=== PATIENT | female | born 1950 | race Caucasian/White ===

== ENCOUNTER → 2016-07-09 | Outpatient (CLI) | payer MEDICARE, MEDICAID ==
[~2016-07-09] MED LIST: CALCTAB68 PO; COLA100C PO; DITR1TAB PO; FERR325T PO; FLON1SPR; LEVO50TA5 PO; LIPI10TA PO; NAPR250T2 PO; SERO1TAB PO; SERO50TA PO; TYLE325T5 PO; VITA100066 PO; VITA500T88 PO; VITMTA PO
--- NOTE | 2016-07-09 12:18 | REPMRS ---
Patient History The patient states she had a clinical breast exam in 06/2016. Patient is postmenopausal. No known family history of cancer. Digital Woman Screen Mammo: July 09, 2016 - Exam #: [id number] Bilateral CC and MLO view(s) were taken. Technologist: Alexandra Cash, Technologist Prior study comparison: March 28, 2015, digital woman screen mammo performed at [facility]. March 27, 2014, bilateral bilat screen digital mammo, performed at [facility] FINDINGS: The breast tissue is heterogeneously dense. This may lower the sensitivity of mammography. There has been no change in the appearance of the mammogram from the prior studies. There is a moderate amount of residual fibroglandular tissue which is fairly symmetric. There is no interval development of dominant mass, architectural distortion, or clustered microcalcification typical of malignancy. There are scattered, small, benign calcifications of doubtful clinical significance. Large coarse benign appearing calcifications are present. No significant changes when compared with prior studies. ASSESSMENT: BI-RADS/ACR category 2 mammogram. Benign finding(s). Recommendation Routine screening mammogram in 1 year (for women over age 40). This mammogram was interpreted with the aid of an FDA-approved computer-aided dectection system. A. Negative x-ray reports should not delay biopsy if a dominant or clinically suspicious mass is present. B. Four to eight percent of cancers are not identified by mammography. C. Adenosis and dense breast may obscure an underlying neoplasm. Electronically Signed By: Adam Rivera MD 07/09/16 [id number]
== END ==
LOC: M WHC 09:55
PROVIDERS: ATTEND Obstetrics & Gynecology
DX: Z12.31 Encounter for screening mammogram for malignant neoplasm of breast (principal)

== ENCOUNTER 2016-10-04 19:42 | Emergency (ER) | payer MEDICARE, MEDICAID ==
[~2016-10-04] VITALS: Ht 149.9 cm; Wt 60.8 kg
[~2016-10-04 19:42] MED LIST changes: -COLA100C PO; +COLA100C3 PO
[2016-10-04] MEDS ORDERED: IBUPROFEN 600 MG TAB PO ONE (23:15)
[2016-10-05 00:15] VITALS: BP 114/79
--- NOTE | 2016-10-05 08:00 | REP ---
Clinical: Trauma. Fall. Technique: AP, lateral, bilateral oblique views of the left ankle. Findings: Lateral soft tissue swelling consistent with inversion injury. No acute fracture dislocation. Joint spaces and ankle mortise are intact. No subcutaneous emphysema or radiodense foreign body. Impression: Lateral soft tissue swelling. No acute fracture dislocation. Signed by Joe Escoto MD 10/05/2016 07:51 A
== END 2016-10-05 00:18 | disposition home or self-care (01) ==
LOC: M ED 20:50
DX: S93.402A Sprain of unspecified ligament of left ankle, initial encounter (principal); X50.1XXA Overexertion from prolonged static or awkward postures, initial encounter; Y92.89 Other specified places as the place of occurrence of the external cause; Y93.01 Activity, walking, marching and hiking; Y99.9 Unspecified external cause status

== ENCOUNTER → 2016-12-10 | Outpatient (CLI) | payer MEDICARE, MEDICAID ==
[~2016-12-10] VITALS: Ht 149.9 cm; Wt 61.2 kg
[~2016-12-10] MED LIST changes: +ACET65SU PO; +BUSP5TA PO; -COLA100C3 PO; +COLA100C5 PO; +FERR1TAB8 PO; -FERR325T PO; +LIDOCAINE 2% INJ 100 MG/5 ML SDV (FOR ANES.) As Ordered ONE; -NAPR250T2 PO; +NAPR250T4 PO; +NS 1,000 ML IV ONE; +PROPOFOL 200 MG/20 ML VIAL As Ordered ONE; +QUET1TAB8 PO; +STOO100C PO
--- NOTE | 2016-12-10 09:40 | ROOR ---
Patient Name: Anahi Collado Procedure Date: 12/10/2016 9:13 AM Date of : 1950 Age: 66 Room: [facility] Gender: Female Note Status: Finalized Procedure: Colonoscopy Indications: Screening for colorectal malignant neoplasm Providers: Dani ALAMO MD Referring MD: JEANETTE HAGAN MD Requesting Provider: Medicines: Monitored Anesthesia Care Complications: No immediate complications. Procedure: Pre-Anesthesia Assessment: - The heart rate, respiratory rate, oxygen saturations, blood pressure, adequacy of pulmonary ventilation, and response to care were monitored throughout the procedure. The Colonoscope was introduced through the anus and advanced to the cecum, identified by appendiceal orifice and ileocecal valve. The colonoscopy was performed without difficulty. The patient tolerated the procedure well. The quality of the bowel preparation was good. Findings: The perianal and digital rectal examinations were normal. A few small-mouthed diverticula were found in the sigmoid colon. Small Internal Hemorrhoids. The entire examined colon appeared normal on direct and retroflexion views. Impression: - Minimal diverticulosis in the sigmoid colon. - Small Internal Hemorrhoids. - The entire colon is normal on direct and retroflexion views. - No specimens collected. Recommendation: - Repeat colonoscopy in 10 years for screening purposes. Dani Alamo MD Dani ALAMO MD 12/10/2016 9:40:05 AM This report has been signed electronically. Number of Addenda: 0 Note Initiated On: 12/10/2016 9:13 AM Estimated Blood Loss: Estimated blood loss: none.
[2016-12-10 10:07] VITALS: BP 161/69
== END | disposition home or self-care (01) ==
LOC: M OPP 08:03
PROVIDERS: ATTEND Internal Medicine Gastroenterology
DX: Z12.11 Encounter for screening for malignant neoplasm of colon (principal); K57.30 Diverticulosis of large intestine without perforation or abscess without bleeding; K64.8 Other hemorrhoids; E03.9 Hypothyroidism, unspecified; M19.90 Unspecified osteoarthritis, unspecified site; F79 Unspecified intellectual disabilities; N39.3 Stress incontinence (female) (male); F20.9 Schizophrenia, unspecified; E78.5 Hyperlipidemia, unspecified; M85.9 Disorder of bone density and structure, unspecified; Z79.899 Other long term (current) drug therapy; Z88.8 Allergy status to other drugs, medicaments and biological substances

== ENCOUNTER 2018-02-06 08:56 | Inpatient (IN) | payer MEDICARE, MEDICAID ==
[2018-02-06 09:45] LABS: HEMATOCRIT 38.6 % (36.0-47.0); HEMOGLOBIN 12.6 g/dl (12.0-15.5); MEAN CORPUSCULAR HEMOGLOBIN 32.1 pg (27.0-33.0); MEAN CORPUSCULAR HGB CONC 32.6 g/dl (32.0-36.5); MEAN CORPUSCULAR VOLUME 98.2 fl (80.0-96.0); PLATELET COUNT, AUTOMATED 284 10^3/uL (150-450); RED BLOOD COUNT 3.93 10^6/uL (4.00-5.40); RED CELL DISTRIBUTION WIDTH 12.7 % (11.5-14.5); WHITE BLOOD COUNT 10.1 10^3/uL (4.0-10.0)
[2018-02-06 10:07] LABS: CONTROL LINE HCG INT CTR LINE PRESENT; HCG, SERUM QUALITATIVE NEGATIVE (NEGATIVE)
[2018-02-06 10:13] LABS: AMPHETAMINES LEVEL URINE NEGATIVE (NEGATIVE); BARBITURATES URINE NEGATIVE (NEGATIVE); BENZODIAZEPINES URINE NEGATIVE (NEGATIVE); CANNABINOIDS URINE NEGATIVE (NEGATIVE); COCAINE METABOLITE URINE NEGATIVE (NEGATIVE); METHADONE URINE NEGATIVE (NEGATIVE); OPIATES URINE NEGATIVE (NEGATIVE); PHENCYCLIDINE URINE NEGATIVE (NEGATIVE)
[2018-02-06 10:23] LABS: ACETAMINOPHEN LEVEL < 2.0 UG/ML (10.0-30.0); ALBUMIN/GLOBULIN RATIO 1.29 (1.00-1.93); ALKALINE PHOSPHATASE 104 U/L (45-117); ALT/SGPT 27 U/L (12-78); ANION GAP 8 MEQ/L (8-16); AST/SGOT 30 U/L (7-37); BILIRUBIN,DIRECT 0.1 MG/DL (0.0-0.2); BILIRUBIN,TOTAL 0.3 MG/DL (0.2-1.0); BLOOD UREA NITROGEN 18 MG/DL (7-18); CALCIUM LEVEL 9.2 MG/DL (8.8-10.2); CARBON DIOXIDE LEVEL 26 MEQ/L (21-32); CHLORIDE LEVEL 109 MEQ/L (98-107); CREATININE FOR GFR 0.89 MG/DL (0.55-1.30); ETHYL ALCOHOL (ETHANOL) < 0.003 % (0.000-0.010); GLOMERULAR FILTRATION RATE > 60.0 (>45); GLUCOSE, FASTING 96 MG/DL (70-100); POTASSIUM SERUM 3.8 MEQ/L (3.5-5.1); SALICYLATE LEVEL < 1.7 MG/DL (5.0-30.0); SODIUM LEVEL 143 MEQ/L (136-145); TOTAL PROTEIN 7.1 GM/DL (6.4-8.2)
[2018-02-06 12:06] LABS: KETONE, URINE AUTO RFX 1+ mg/dL (NEGATIVE); LEUKOCYTE ESTERASE UR AUTO RFX NEGATIVE (NEGATIVE); MUCUS, URINE RFX SMALL (NEGATIVE); NITRITE, URINE AUTO RFX NEGATIVE (NEGATIVE); RBC, URINE AUTO RFX 14 /HPF (0-3); SPECIFIC GRAVITY UR AUTO RFX 1.013 (1.002-1.035); SQUAM EPITHELIAL CELL UR AURFX 0 /HPF (0-6); WBC, URINE AUTO RFX 6 /HPF (0-3)
[2018-02-06] MEDS ORDERED: MAALOX 30 ML SUSP *UDC PO (16:15)
[2018-02-06] MEDS ORDERED: traZODone 50 MG TAB PO (16:15)
[2018-02-06] MEDS: ATORVASTATIN 10 MG TAB PO (21:46)
[2018-02-06] MEDS: CALCIUM/VITAMIN D 500 MG TAB PO (21:46)
[2018-02-06] MEDS: FLUTICASONE PROP 0.05% NASAL SPRAY 16 GM (FLONASE) (21:46)
[2018-02-06] MEDS: QUEtiapine FUMARATE 100 MG TAB PO (21:47)
[2018-02-06] MEDS: busPIRone 10 MG TAB PO (21:47)
[2018-02-06] MEDS: DOCUSATE SODIUM 100 MG CAP PO (21:47)
[2018-02-07] MEDS: LEVOTHYROXINE 50MCG TABLET (0.05MG) PO (06:11)
[2018-02-07] MEDS: DOCUSATE SODIUM 100 MG CAP PO ×2 (09:31→21:45)
[2018-02-07] MEDS: MULTIVITAMINS/MINERALS THERAP 1 TAB PO (09:31)
[2018-02-07] MEDS: ASPIRIN 81 MG ENTERIC TAB PO (09:31)
[2018-02-07] MEDS: VITAMIN D 1,000 INTERNATIONAL UNITS TABLET PO (09:31)
[2018-02-07] MEDS: busPIRone 10 MG TAB PO ×2 (09:31→21:45)
[2018-02-07] MEDS: oxyBUTYnin *DITROPAN XL* 5 MG TABCR PO (09:31)
[2018-02-07] MEDS: QUEtiapine FUMARATE 100 MG TAB PO (09:31)
[2018-02-07] MEDS: CEFDINIR 300 MG CAP (OMNICEF) PO ×2 (14:16→21:45)
[2018-02-07] MEDS: BENZTROPINE 0.5 MG TAB PO ×2 (14:20→21:45)
[2018-02-07] MEDS ORDERED: QUEtiapine FUMARATE 200 MG TAB PO (21:00)
[2018-02-07] MEDS: PALIPERIDONE 3 MG ER TAB (INVEGA) PO (21:46)
[2018-02-07] MEDS: ATORVASTATIN 10 MG TAB PO (21:46)
[2018-02-07] MEDS: CALCIUM/VITAMIN D 500 MG TAB PO (21:46)
[2018-02-07] MEDS: FLUTICASONE PROP 0.05% NASAL SPRAY 16 GM (FLONASE) (21:46)
[2018-02-07] MEDS: MIRTAZAPINE 15 MG TAB PO (21:48)
[2018-02-08] MEDS: QUEtiapine FUMARATE 100 MG TAB PO (03:01)
[2018-02-08] MEDS: LEVOTHYROXINE 50MCG TABLET (0.05MG) PO (06:25)
[2018-02-08] MEDS: oxyBUTYnin *DITROPAN XL* 5 MG TABCR PO (08:53)
[2018-02-08] MEDS: ASPIRIN 81 MG ENTERIC TAB PO (08:53)
[2018-02-08] MEDS: CEFDINIR 300 MG CAP (OMNICEF) PO ×2 (08:53→20:33)
[2018-02-08] MEDS: busPIRone 10 MG TAB PO ×2 (08:53→20:33)
[2018-02-08] MEDS: BENZTROPINE 0.5 MG TAB PO ×2 (08:53→20:33)
[2018-02-08] MEDS: VITAMIN D 1,000 INTERNATIONAL UNITS TABLET PO (08:53)
[2018-02-08] MEDS: MULTIVITAMINS/MINERALS THERAP 1 TAB PO (08:53)
[2018-02-08] MEDS: PALIPERIDONE 3 MG ER TAB (INVEGA) PO ×2 (08:53→20:33)
[2018-02-08] MEDS: DOCUSATE SODIUM 100 MG CAP PO ×2 (08:54→20:36)
[2018-02-08] MEDS: ACETAMINOPHEN TAB 650MG DOSE (2X325MG) PO (09:18)
[2018-02-08 11:27] LABS: KETONE, URINE AUTO RFX 1+ mg/dL (NEGATIVE); LEUKOCYTE ESTERASE UR AUTO RFX NEGATIVE (NEGATIVE); MUCUS, URINE RFX SMALL (NEGATIVE); NITRITE, URINE AUTO RFX NEGATIVE (NEGATIVE); RBC, URINE AUTO RFX 9 /HPF (0-3); SQUAM EPITHELIAL CELL UR AURFX 0 /HPF (0-6); WBC, URINE AUTO RFX 1 /HPF (0-3)
[2018-02-08] MEDS: MIRTAZAPINE 15 MG TAB PO (20:33)
[2018-02-08] MEDS: ATORVASTATIN 10 MG TAB PO (20:33)
[2018-02-08] MEDS: FLUTICASONE PROP 0.05% NASAL SPRAY 16 GM (FLONASE) (20:33)
[2018-02-08] MEDS: CALCIUM/VITAMIN D 500 MG TAB PO (20:33)
[2018-02-08] MEDS: MOM 30ML SUSPENSION UDC PO (20:33)
[2018-02-09] MEDS: LEVOTHYROXINE 50MCG TABLET (0.05MG) PO (06:13)
[2018-02-09] MEDS: DOCUSATE SODIUM 100 MG CAP PO ×2 (09:06→23:07)
[2018-02-09] MEDS: VITAMIN D 1,000 INTERNATIONAL UNITS TABLET PO (09:06)
[2018-02-09] MEDS: oxyBUTYnin *DITROPAN XL* 5 MG TABCR PO (09:06)
[2018-02-09] MEDS: busPIRone 10 MG TAB PO ×2 (09:06→23:07)
[2018-02-09] MEDS: CEFDINIR 300 MG CAP (OMNICEF) PO ×2 (09:06→23:06)
[2018-02-09] MEDS: BENZTROPINE 0.5 MG TAB PO ×2 (09:06→23:07)
[2018-02-09] MEDS: PALIPERIDONE 3 MG ER TAB (INVEGA) PO ×2 (09:06→23:07)
[2018-02-09] MEDS: MULTIVITAMINS/MINERALS THERAP 1 TAB PO (09:06)
[2018-02-09] MEDS: ASPIRIN 81 MG ENTERIC TAB PO (09:06)
[2018-02-09] MEDS: FLUTICASONE PROP 0.05% NASAL SPRAY 16 GM (FLONASE) (21:00)
[2018-02-09] MEDS: CALCIUM/VITAMIN D 500 MG TAB PO (23:06)
[2018-02-09] MEDS: ATORVASTATIN 10 MG TAB PO (23:07)
[2018-02-09] MEDS: MIRTAZAPINE 15 MG TAB PO (23:07)
[2018-02-10] MEDS: LEVOTHYROXINE 50MCG TABLET (0.05MG) PO (06:05)
[2018-02-10] MEDS: busPIRone 10 MG TAB PO ×2 (09:30→21:56)
[2018-02-10] MEDS: BENZTROPINE 0.5 MG TAB PO ×2 (09:30→21:56)
[2018-02-10] MEDS: PALIPERIDONE 3 MG ER TAB (INVEGA) PO ×2 (09:30→21:56)
[2018-02-10] MEDS: CEFDINIR 300 MG CAP (OMNICEF) PO ×2 (09:30→21:56)
[2018-02-10] MEDS: oxyBUTYnin *DITROPAN XL* 5 MG TABCR PO (09:30)
[2018-02-10] MEDS: MULTIVITAMINS/MINERALS THERAP 1 TAB PO (09:30)
[2018-02-10] MEDS: DOCUSATE SODIUM 100 MG CAP PO ×2 (09:30→21:56)
[2018-02-10] MEDS: ASPIRIN 81 MG ENTERIC TAB PO (09:30)
[2018-02-10] MEDS: VITAMIN D 1,000 INTERNATIONAL UNITS TABLET PO (09:30)
[2018-02-10] MEDS: ACETAMINOPHEN TAB 650MG DOSE (2X325MG) PO (09:44)
[2018-02-10] MEDS: FLUTICASONE PROP 0.05% NASAL SPRAY 16 GM (FLONASE) (21:00)
[2018-02-10] MEDS: MIRTAZAPINE 15 MG TAB PO (21:55)
[2018-02-10] MEDS: ATORVASTATIN 10 MG TAB PO (21:56)
[2018-02-10] MEDS: CALCIUM/VITAMIN D 500 MG TAB PO (21:56)
[2018-02-11] MEDS: LEVOTHYROXINE 50MCG TABLET (0.05MG) PO (06:29)
[2018-02-11] MEDS: ASPIRIN 81 MG ENTERIC TAB PO (08:18)
[2018-02-11] MEDS: oxyBUTYnin *DITROPAN XL* 5 MG TABCR PO (08:19)
[2018-02-11] MEDS: DOCUSATE SODIUM 100 MG CAP PO ×2 (08:19→21:15)
[2018-02-11] MEDS: VITAMIN D 1,000 INTERNATIONAL UNITS TABLET PO (08:19)
[2018-02-11] MEDS: PALIPERIDONE 3 MG ER TAB (INVEGA) PO ×2 (08:19→21:17)
[2018-02-11] MEDS: MULTIVITAMINS/MINERALS THERAP 1 TAB PO (08:19)
[2018-02-11] MEDS: BENZTROPINE 0.5 MG TAB PO ×2 (08:19→21:16)
[2018-02-11] MEDS: busPIRone 10 MG TAB PO ×2 (08:19→21:16)
[2018-02-11] MEDS: CEFDINIR 300 MG CAP (OMNICEF) PO ×2 (08:19→21:16)
[2018-02-11] MEDS: ACETAMINOPHEN TAB 650MG DOSE (2X325MG) PO (18:33)
[2018-02-11] MEDS: FLUTICASONE PROP 0.05% NASAL SPRAY 16 GM (FLONASE) (21:15)
[2018-02-11] MEDS: ATORVASTATIN 10 MG TAB PO (21:15)
[2018-02-11] MEDS: CALCIUM/VITAMIN D 500 MG TAB PO (21:16)
[2018-02-11] MEDS: MIRTAZAPINE 15 MG TAB PO (21:16)
[2018-02-12] MEDS: LEVOTHYROXINE 50MCG TABLET (0.05MG) PO (06:12)
[2018-02-12] MEDS: oxyBUTYnin *DITROPAN XL* 5 MG TABCR PO (08:21)
[2018-02-12] MEDS: VITAMIN D 1,000 INTERNATIONAL UNITS TABLET PO (08:21)
[2018-02-12] MEDS: PALIPERIDONE 3 MG ER TAB (INVEGA) PO ×2 (08:22→21:35)
[2018-02-12] MEDS: BENZTROPINE 0.5 MG TAB PO ×2 (08:22→21:35)
[2018-02-12] MEDS: busPIRone 10 MG TAB PO ×2 (08:22→21:35)
[2018-02-12] MEDS: ASPIRIN 81 MG ENTERIC TAB PO (08:22)
[2018-02-12] MEDS: CEFDINIR 300 MG CAP (OMNICEF) PO ×2 (08:22→21:35)
[2018-02-12] MEDS: MULTIVITAMINS/MINERALS THERAP 1 TAB PO (08:22)
[2018-02-12] MEDS: DOCUSATE SODIUM 100 MG CAP PO ×2 (08:22→21:35)
[2018-02-12] MEDS: ATORVASTATIN 10 MG TAB PO (21:35)
[2018-02-12] MEDS: CALCIUM/VITAMIN D 500 MG TAB PO (21:35)
[2018-02-12] MEDS: MIRTAZAPINE 15 MG TAB PO (21:35)
[2018-02-12] MEDS: FLUTICASONE PROP 0.05% NASAL SPRAY 16 GM (FLONASE) (21:35)
[2018-02-13] MEDS: LEVOTHYROXINE 50MCG TABLET (0.05MG) PO (06:40)
[2018-02-13] MEDS: oxyBUTYnin *DITROPAN XL* 5 MG TABCR PO (09:24)
[2018-02-13] MEDS: BENZTROPINE 0.5 MG TAB PO ×2 (09:24→21:43)
[2018-02-13] MEDS: busPIRone 10 MG TAB PO ×2 (09:24→21:43)
[2018-02-13] MEDS: MULTIVITAMINS/MINERALS THERAP 1 TAB PO (09:24)
[2018-02-13] MEDS: DOCUSATE SODIUM 100 MG CAP PO ×2 (09:24→21:43)
[2018-02-13] MEDS: ASPIRIN 81 MG ENTERIC TAB PO (09:24)
[2018-02-13] MEDS: VITAMIN D 1,000 INTERNATIONAL UNITS TABLET PO (09:24)
[2018-02-13] MEDS: PALIPERIDONE 3 MG ER TAB (INVEGA) PO ×2 (09:24→21:46)
[2018-02-13] MEDS: CEFDINIR 300 MG CAP (OMNICEF) PO ×2 (09:24→21:43)
[2018-02-13 18:56] LABS: ALKALINE PHOSPHATASE 102 U/L (45-117); ALT/SGPT 42 U/L (12-78); ANION GAP 7 MEQ/L (8-16); AST/SGOT 43 U/L (7-37); BILIRUBIN,TOTAL 0.2 MG/DL (0.2-1.0); BLOOD UREA NITROGEN 20 MG/DL (7-18); CALCIUM LEVEL 9.2 MG/DL (8.8-10.2); CARBON DIOXIDE LEVEL 28 MEQ/L (21-32); CHLORIDE LEVEL 105 MEQ/L (98-107); CREATININE FOR GFR 0.89 MG/DL (0.55-1.30); GLOMERULAR FILTRATION RATE > 60.0 (>45); GLUCOSE, FASTING 97 MG/DL (70-100); POTASSIUM SERUM 4.4 MEQ/L (3.5-5.1); SODIUM LEVEL 140 MEQ/L (136-145)
[2018-02-13 18:57] LABS: ALBUMIN 3.7 GM/DL (3.2-5.2); ALBUMIN/GLOBULIN RATIO 1.37 (1.00-1.93); TOTAL PROTEIN 6.4 GM/DL (6.4-8.2)
[2018-02-13] MEDS: CALCIUM/VITAMIN D 500 MG TAB PO (21:43)
[2018-02-13] MEDS: ATORVASTATIN 10 MG TAB PO (21:43)
[2018-02-13] MEDS: MIRTAZAPINE 15 MG TAB PO (21:43)
[2018-02-13] MEDS: FLUTICASONE PROP 0.05% NASAL SPRAY 16 GM (FLONASE) (21:46)
[2018-02-14] MEDS: LEVOTHYROXINE 50MCG TABLET (0.05MG) PO (06:03)
[2018-02-14] MEDS: MULTIVITAMINS/MINERALS THERAP 1 TAB PO (08:15)
[2018-02-14] MEDS: CEFDINIR 300 MG CAP (OMNICEF) PO ×2 (08:16→20:01)
[2018-02-14] MEDS: PALIPERIDONE 3 MG ER TAB (INVEGA) PO ×2 (08:16→20:01)
[2018-02-14] MEDS: ASPIRIN 81 MG ENTERIC TAB PO (08:16)
[2018-02-14] MEDS: DOCUSATE SODIUM 100 MG CAP PO ×2 (08:16→20:01)
[2018-02-14] MEDS: BENZTROPINE 0.5 MG TAB PO ×2 (08:16→20:02)
[2018-02-14] MEDS: VITAMIN D 1,000 INTERNATIONAL UNITS TABLET PO (08:16)
[2018-02-14] MEDS: busPIRone 10 MG TAB PO ×2 (08:16→20:01)
[2018-02-14] MEDS: oxyBUTYnin *DITROPAN XL* 5 MG TABCR PO (08:16)
[2018-02-14] MEDS: MIRTAZAPINE 15 MG TAB PO (20:01)
[2018-02-14] MEDS: CALCIUM/VITAMIN D 500 MG TAB PO (20:01)
[2018-02-14] MEDS: ATORVASTATIN 10 MG TAB PO (20:01)
[2018-02-14] MEDS: FLUTICASONE PROP 0.05% NASAL SPRAY 16 GM (FLONASE) (20:01)
[2018-02-15] MEDS: LEVOTHYROXINE 50MCG TABLET (0.05MG) PO (06:09)
[2018-02-15] MEDS: BENZTROPINE 0.5 MG TAB PO (08:12)
[2018-02-15] MEDS: CEFDINIR 300 MG CAP (OMNICEF) PO (08:12)
[2018-02-15] MEDS: MULTIVITAMINS/MINERALS THERAP 1 TAB PO (08:12)
[2018-02-15] MEDS: PALIPERIDONE 3 MG ER TAB (INVEGA) PO (08:12)
[2018-02-15] MEDS: busPIRone 10 MG TAB PO (08:12)
[2018-02-15] MEDS: ASPIRIN 81 MG ENTERIC TAB PO (08:12)
[2018-02-15] MEDS: VITAMIN D 1,000 INTERNATIONAL UNITS TABLET PO (08:12)
[2018-02-15] MEDS: DOCUSATE SODIUM 100 MG CAP PO (08:13)
[2018-02-15] MEDS: oxyBUTYnin *DITROPAN XL* 5 MG TABCR PO (09:01)
== END 2018-02-15 11:40 | disposition home or self-care (01) | DRG 885 ==
LOC: M ED 08:56 → M ED INP 16:11 → M PSY 17:43
DX: F20.9 Schizophrenia, unspecified (principal); F79 Unspecified intellectual disabilities; Z79.899 Other long term (current) drug therapy; Z79.82 Long term (current) use of aspirin; Z88.8 Allergy status to other drugs, medicaments and biological substances; E55.9 Vitamin D deficiency, unspecified; D50.9 Iron deficiency anemia, unspecified; E03.9 Hypothyroidism, unspecified; E78.5 Hyperlipidemia, unspecified; J30.9 Allergic rhinitis, unspecified; Z86.73 Personal history of transient ischemic attack (TIA), and cerebral infarction without residual deficits

== ENCOUNTER 2019-02-06 08:45 | Emergency (ER) | payer MEDICARE, MEDICAID ==
[~2019-02-06] VITALS: Ht 149.9 cm; Wt 62.3 kg
[~2019-02-06 08:45] MED LIST changes: +ASPI81TA26 PO; +BENZ0.5T23 PO; +BUSP10TA PO; +CEFD300CAP PO; -LIDOCAINE 2% INJ 100 MG/5 ML SDV (FOR ANES.) As Ordered ONE; +MIRT15TA3 PO; +MM S100C PO; -NS 1,000 ML IV ONE; +PALI1TAB2 PO; -PROPOFOL 200 MG/20 ML VIAL As Ordered ONE; +REFR0.5D8 OU; -STOO100C PO; +TESS100C PO
[2019-02-06] MEDS ORDERED: MULTCAP PO (09:06)
[2019-02-06] MEDS ORDERED: VITA500079 PO (09:06)
[2019-02-06] MEDS ORDERED: FLUTISP NARES (09:06)
[2019-02-06] MEDS ORDERED: LIPI10TA PO (09:06)
[2019-02-06] MEDS ORDERED: CALC600T18 PO (09:06)
[2019-02-06] MEDS ORDERED: BUSP10TA PO (09:06)
[2019-02-06] MEDS ORDERED: COLA100C5 PO (09:06)
[2019-02-06] MEDS ORDERED: LEVO50TA45 PO (09:06)
[2019-02-06] MEDS ORDERED: SERO1TAB2 PO (09:06)
[2019-02-06] MEDS ORDERED: ASPI81TA85 PO (09:06)
[2019-02-06] MEDS ORDERED: OXYB10TA2 PO (09:06)
[2019-02-06] MEDS ORDERED: ASCO500T PO (09:06)
[2019-02-06] MEDS ORDERED: BUSP15TA47 PO (09:06)
[2019-02-06] MEDS ORDERED: QUET1TAB8 PO (09:06)
[2019-02-06 09:21] LABS: BASO # 0.1 10^3/uL (0.0-0.2); BASO % 1.6 % (0.0-1.0); EOS # 0.7 10^3/uL (0.0-0.5); EOS % 9.5 % (0.0-3.0); HEMATOCRIT 36.9 % (36.0-47.0); HEMOGLOBIN 12.1 g/dl (12.0-15.5); LYMPH % 29.6 % (24.0-44.0); MEAN CORPUSCULAR HEMOGLOBIN 32.4 pg (27.0-33.0); MEAN CORPUSCULAR HGB CONC 32.8 g/dl (32.0-36.5); MEAN CORPUSCULAR VOLUME 98.9 fl (80.0-96.0); MONO # 0.6 10^3/uL (0.0-0.8); MONO % 8.2 % (0.0-5.0); NEUTROPHILS # 3.5 10^3/uL (1.5-8.5); NEUTROPHILS % 50.8 % (36.0-66.0); PLATELET COUNT, AUTOMATED 230 10^3/uL (150-450); RED BLOOD COUNT 3.73 10^6/uL (4.00-5.40); WHITE BLOOD COUNT 6.9 10^3/uL (4.0-10.0)
[2019-02-06 09:44] LABS: BLOOD UREA NITROGEN 20 MG/DL (7-18); CALCIUM LEVEL 8.8 MG/DL (8.8-10.2); CARBON DIOXIDE LEVEL 28 MEQ/L (21-32); CHLORIDE LEVEL 107 MEQ/L (98-107); CK-MB VALUE MASS < 1.0 NG/ML (<3.6); CPK CREATINE PHOSPHOKINASE 91 U/L (26-192); CREATININE FOR GFR 0.99 MG/DL (0.55-1.30); GLOMERULAR FILTRATION RATE 59.7 (>45); GLUCOSE, FASTING 120 MG/DL (70-100); SODIUM LEVEL 142 MEQ/L (136-145); TROPONIN I < 0.02 NG/ML (< 0.10)
--- NOTE | 2019-02-06 09:52 | REP ---
CT BRAIN WITHOUT CONTRAST: HISTORY: Syncope. Comparison CT study October 31, 2017. December 11, 2015 prior study is also reviewed. CT FINDINGS: Preliminary digital needle maker radiograph is unremarkable. Bone window settings demonstrate an intact bony calvarium. The visualized paranasal sinuses are clear. No intraorbital abnormality is seen. There is a lacunar infarct in the right basal ganglia measuring 1.4 cm in greatest dimension unchanged from October 31, 2017. There are small vessel atherosclerotic changes in the periventricular white matter of the frontal lobes bilaterally also unchanged. There is no evidence of acute infarction today. No hemorrhage is seen. No mass, extra-axial fluid collection, or midline shift is seen. 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 No acute intracranial abnormality. Findings unchanged from October 31, 2017. Electronically Signed by Ruperto Simons MD 02/06/2019 04:06 P
[2019-02-06 11:19] VITALS: BP 151/89
--- NOTE | 2019-02-06 17:46 | ECGEPIP ---
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
== END 2019-02-06 11:28 | disposition home or self-care (01) ==
LOC: EDBD 08:45 → M ED 08:45
DX: R55 Syncope and collapse (principal); E07.9 Disorder of thyroid, unspecified; E78.00 Pure hypercholesterolemia, unspecified; D50.9 Iron deficiency anemia, unspecified; F20.9 Schizophrenia, unspecified; J30.2 Other seasonal allergic rhinitis; Z79.899 Other long term (current) drug therapy; Z79.890 Hormone replacement therapy; Z79.82 Long term (current) use of aspirin; Z88.8 Allergy status to other drugs, medicaments and biological substances

== ENCOUNTER 2019-03-18 14:15 | Observation (INO) | payer MEDICARE, MEDICAID ==
[~2019-03-18] VITALS: Ht 149.9 cm; Wt 72.8 kg
[~2019-03-18 14:15] MED LIST changes: +ASCO500T PO; +ASPI81TA85 PO; +BUSP15TA47 PO; +CALC600T18 PO; +FLUTISP NARES; +LEVO50TA45 PO; +MULTCAP PO; +OXYB10TA2 PO; +SERO1TAB2 PO; +VITA500079 PO
[2019-03-18] MEDS ORDERED: CIPR-250 PO (14:36)
[2019-03-18] MEDS ORDERED: NS 500 ML IV ONE (15:30)
[2019-03-18 15:55] LABS: BASO # 0.1 10^3/uL (0.0-0.2); BASO % 1.2 % (0.0-1.0); EOS # 0.3 10^3/uL (0.0-0.5); EOS % 3.1 % (0.0-3.0); HEMATOCRIT 35.9 % (36.0-47.0); HEMOGLOBIN 11.3 g/dl (12.0-15.5); LYMPH # 2.3 10^3/uL (1.5-5.0); LYMPH % 24.3 % (24.0-44.0); MEAN CORPUSCULAR HEMOGLOBIN 31.7 pg (27.0-33.0); MEAN CORPUSCULAR HGB CONC 31.5 g/dl (32.0-36.5); MEAN CORPUSCULAR VOLUME 100.8 fl (80.0-96.0); MONO # 0.9 10^3/uL (0.0-0.8); MONO % 9.2 % (0.0-5.0); NEUTROPHILS # 5.9 10^3/uL (1.5-8.5); NEUTROPHILS % 61.9 % (36.0-66.0); PLATELET COUNT, AUTOMATED 222 10^3/uL (150-450); RED BLOOD COUNT 3.56 10^6/uL (4.00-5.40); WHITE BLOOD COUNT 9.6 10^3/uL (4.0-10.0)
--- NOTE | 2019-03-18 15:55 | REP ---
Clinical: Altered mental status . Comparison: 10/31/2017 . Findings: The mediastinum and cardiac silhouette are stable and within normal limits for portable technique. The lung munoz are clear without acute consolidation, effusion, or pneumothorax. Skeletal structures are intact. Impression: No acute cardiopulmonary process appreciated. Electronically Signed by Joe Escoto MD 03/18/2019 03:45 P
[2019-03-18 16:27] LABS: ALBUMIN 3.3 GM/DL (3.2-5.2); ALT/SGPT 21 U/L (12-78); BILIRUBIN,DIRECT 0.1 MG/DL (0.0-0.2); BILIRUBIN,TOTAL 0.3 MG/DL (0.2-1.0); BLOOD UREA NITROGEN 19 MG/DL (7-18); CALCIUM LEVEL 8.1 MG/DL (8.8-10.2); CARBON DIOXIDE LEVEL 26 MEQ/L (21-32); CHLORIDE LEVEL 104 MEQ/L (98-107); CK-MB VALUE MASS 3.4 NG/ML (<3.6); CPK CREATINE PHOSPHOKINASE 217 U/L (26-192); CREATININE FOR GFR 1.28 MG/DL (0.55-1.30); GLOMERULAR FILTRATION RATE 44.3 (>45); GLUCOSE, FASTING 100 MG/DL (70-100); MB/CK RELATIVE INDEX 1.57 (< OR =4); POTASSIUM SERUM 3.7 MEQ/L (3.5-5.1); SODIUM LEVEL 138 MEQ/L (136-145); TROPONIN I < 0.02 NG/ML (< 0.10)
[2019-03-18 16:28] LABS: OSMOLALITY SERUM 278 MOSM/KG (280-301)
[2019-03-18] MEDS ORDERED: ISOVUE-370 76% 100ML VIAL (Q9967) As Ordered ONE (16:42)
--- NOTE | 2019-03-18 17:09 | REP ---
Clinical: Cough. Technique: Axial contrast enhanced images from the thoracic inlet to the upper abdomen with coronal and sagittal re-formations. 100 ml Isovue 370 intravenous contrast material administered without complication. Findings: Bilateral lung munoz are well-aerated. Minimal posterior basilar dependent changes are noted. No acute consolidation, effusion, or pneumothorax. Tracheobronchial tree is patent. No adenopathy. Mediastinum demonstrates relatively normal thoracic aorta, pulmonary vasculature and heart/pericardium. Surrounding musculoskeletal structures are intact. Impression: No acute mediastinal or pleuroparenchymal process. Electronically Signed by Joe Escoto MD 03/18/2019 05:00 P
--- NOTE | 2019-03-18 17:11 | REP ---
Clinical: Abdominal pain. Technique: Axial contrast enhanced images from the lung bases to the pubic symphysis with coronal and sagittal re-formations using 100 ml Isovue 370 intravenous contrast material. Findings: Liver, spleen, pancreas, gallbladder, bilateral adrenal glands and kidneys are normal. No evidence for bowel obstruction or obvious acute inflammatory process. Normal terminal ileum and appendix identified in the right lower quadrant. Scattered sigmoid diverticula noted without acute diverticulitis. Pelvis demonstrates normal bladder and age-appropriate uterus/adnexa. No ascites. No free air. No adenopathy. Abdominal aorta without aneurysm or dissection. Musculoskeletal structures without focal abnormality. Impression: No acute abdominopelvic pathology appreciated. Electronically Signed by Joe Escoto MD 03/18/2019 05:02 P
--- NOTE | 2019-03-18 19:09 | HPEPDOC ---
[facility] Medical History & Physical Date of Admission Mar 18, 2019 Date of Service: Mar 18, 2019 Attending Physician: GABRIEL GALVAN MD History and Physical CHIEF COMPLAINT: Altered mental status HISTORY OF PRESENT ILLNESS: 69-year-old female with past medical history of schizophrenia, hypothyroidism and hyperlipidemia presents from prison for altered mental status for the past few days. She was recently diagnosed with UTI, being treated with ciprofloxacin, patient is only oriented to self, poor historian, unable to answer any questions appropriate. Aide from prison is present at bedside, providing all information. Patient has a history of recurrent UTIs, usually gets altered mental status with UTIs, but this episode is worse than usual, has been worsening since she was diagnosed UTI to point where staff was concerned and sent to the hospital. Patient does not have any complaints at this time, eating dinner without any issues and asking when she can go back to her prison. In the ED, patient is afebrile, hemodynamic stable, CT of the chest, abdomen and pelvis without any acute pathology. PAST MEDICAL HISTORY: 1. Schizophrenia. 2., Hypothyroidism. 3. , Hyperlipidemia. PAST SURGICAL HISTORY: 1. As per aide patient has had one surgery in the past, doesn't know which. SOCIAL HISTORY: Never smoker. Denies alcohol FAMILY HISTORY: Unable to obtain ALLERGIES: Please see below. REVIEW OF SYSTEMS: Unable to obtain due to mental status HOME MEDICATIONS: Please see below. PHYSICAL EXAMINATION: VITAL SIGNS: Please see below. GENERAL: No distress HEENT: Normocephalic, atraumatic, moist mucous membranes NECK: Supple CARDIOVASCULAR EXAMINATION: S1, S2, no murmurs RESPIRATORY EXAMINATION: Clear to auscultation, no wheezing ABDOMINAL EXAMINATION: Soft, mild suprapubic tenderness, nondistended, positive bowel sounds EXTREMITIES: Range of motion intact SKIN: No rash NEUROLOGICAL EXAMINATION: Alert and oriented 3, no focal deficits PSYCHIATRIC EXAMINATION: Calm and cooperative LABORATORY DATA: See below. IMAGING: CT chest, abdomen and pelvis without any acute pathology MICROBIOLOGY: Please see below. ASSESSMENT: 69-year-old female with history of schizophrenia, hypothyroidism and recurrent UTIs, recently diagnosed with UTI being treated with ciprofloxacin presents from prison with worsening altered mental status. PLAN: 1. Altered mental status ?Due to UTI vs medication side effects vs intracranial pathology Patient will be admitted for observation Switch ciprofloxacin to ceftriaxone, CT had ordered. CT chest, abdomen and pelvis without any acute pathology. 2. Schizophrenia. Continue home meds. 3. Hypothyroidism. Continue levothyroxine. 4. Hyperlipidemia. Continue home atorvastatin DVT prophylaxis: Heparin subcutaneous GI prophylaxis: Not needed Vital Signs Vital Signs Date Time Temp Pulse Resp B/P (MAP) Pulse Ox O2 Delivery O2 Flow Rate FiO2 03/18/19 18:46 85 20 160/85 (110) 98 Room Air 03/18/19 14:16 98.6 Laboratory Data Labs 24H Laboratory Tests 2 03/18/19 15:41: Immature Granulocyte % (Auto) 0.3, Neutrophils (%) (Auto) 61.9, Lymphocytes (%) (Auto) 24.3, Monocytes (%) (Auto) 9.2H, Eosinophils (%) (Auto) 3.1H, Basophils (%) (Auto) 1.2H, Neutrophils # (Auto) 5.9, Lymphocytes # (Auto) 2.3, Monocytes # (Auto) 0.9H, Eosinophils # (Auto) 0.3, Basophils # (Auto) 0.1, Nucleated Red Blood Cells % (auto) 0.0, Anion Gap 8, Glomerular Filtration Rate 44.3L, Osmolality 278L, Lactic Acid Level 0.5, Calcium Level 8.1L, Total Bilirubin 0.3, Direct Bilirubin 0.1, Aspartate Amino Transf (AST/SGOT) 30, Alanine Aminotransferase (ALT/SGPT) 21, Alkaline Phosphatase 83, Ammonia < 10, Total Creatine Kinase 217H, Creatine Kinase MB 3.4, Creatine Kinase MB Relative Index 1.57, Troponin I < 0.02, Total Protein 6.0L, Albumin 3.3, Albumin/Globulin Ratio 1.22, Thyroid Stimulating Hormone (TSH) 2.660 03/18/19 15:48: Urine Color YELLOW, Urine Appearance HAZY, Urine pH 6.0, Urine Specific [place] 1.004, Urine Protein NEGATIVE, Urine Glucose (UA) NEGATIVE, Urine Ketones NEGATIVE, Urine Blood NEGATIVE, Urine Nitrite NEGATIVE, Urine Bilirubin NEGATIVE, Urine Urobilinogen 0.2, Urine Leukocyte Esterase NEGATIVE, Urine WBC (Auto) 1, Urine RBC (Auto) 1, Urine Hyaline Casts (Auto) 0, Urine Bacteria (Auto) 1+H, Urine Squamous Epithelial Cells 0, Urine Sperm (Auto) CBC/BMP Laboratory Tests 03/18/19 15:41 Microbiology Microbiology 03/18/19 Blood Culture, Received Pending 03/18/19 Blood Culture, Received Pending Home Medications Scheduled Ascorbic Acid (Ascorbic Acid) 500 Mg Tablet, 500 MG PO DAILY Aspirin (Aspir 81) 81 Mg Tablet.dr, 81 MG PO DAILY Atorvastatin Calcium (Lipitor) 10 Mg Tablet, 10 MG PO DAILY Buspirone HCl (Buspirone HCl) 15 Mg Tablet, 15 MG PO BID 25MG BID Calcium Carbonate/Vitamin D3 (Calcium 600-Vit D3 400 Tablet) 1 Each Tablet, 1 TAB PO DAILY Cholecalciferol (Vitamin D3) (Vitamin D3) 5,000 Unit Tab.rapdis, 5,000 UNIT PO DAILY Ciprofloxacin HCl (Cipro) 250 Mg Tablet, 250 TAB PO BID Docusate Sodium (Colace) 100 Mg Capsule, 100 MG PO BID Fluticasone Propionate (Fluticasone Propionate) 16 Gm [place].susp, 2 SPRAY NARES DAILY Levothyroxine Sodium (Levoxyl) 50 Mcg Tablet, 50 MCG PO QAM Multivitamin (Multivitamins) 1 Each Capsule, 1 CAP PO DAILY Oxybutynin Chloride (Oxybutynin Chloride ER) 10 Mg Tab.er.24, 10 MG PO DAILY Quetiapine Fumarate (Quetiapine Fumarate) 100 Mg Tablet, 100 MG PO DAILY Allergies Coded Allergies: SEASONAL ALLERGIES (Verified Allergy, Unknown, 10/31/17) ziprasidone (Verified Allergy, Unknown, 02/06/19) A-FIB/CHADSVASC A-FIB History Current/History of A-Fib/PAF?: No GABRIEL GALVAN MD Mar 18, 2019 19:09
[2019-03-18] MEDS ORDERED: BUSP10TA PO (19:13)
[2019-03-18] MEDS ORDERED: QUET1TAB10 PO (19:13)
[2019-03-18] MEDS: cefTRIAXone SOD 1 GM in D5W MINI-BAG PLUS 50 ML IV SCH (20:16)
[2019-03-18 21:20] VITALS: BP 132/85
[2019-03-18] MEDS: HEPARIN SOD (PORCINE) 5000 UNITS/ML VIAL SC SCH (22:09)
[2019-03-18] MEDS: QUEtiapine FUMARATE 100 MG TAB PO SCH (22:10)
[2019-03-18] MEDS: busPIRone 5 MG TAB PO SCH (22:10)
[2019-03-18] MEDS: DOCUSATE SODIUM 100 MG CAP PO SCH (22:10)
[2019-03-18] MEDS: busPIRone 10 MG TAB PO SCH (22:10)
--- NOTE | 2019-03-18 23:52 | REPVR ---
PROCEDURE INFORMATION: Exam: CT Head Without Contrast Exam date and time: 03/18/2019 11:36 PM Clinical history: 69 years old, female; Altered mental status/memory loss; Confusion or disorientation; Additional info: AMS TECHNIQUE: Imaging protocol: Computed tomography of the head without contrast. Radiation optimization: All CT scans at this facility use at least one of these dose optimization techniques: automated exposure control; mA and/or kV adjustment per patient size (includes targeted exams where dose is matched to clinical indication); or iterative reconstruction. COMPARISON: CT Head without contrast 02/06/2019 9:27 AM FINDINGS: Brain: Chronic infarct in the right basal ganglia. The recinos-white differentiation is maintained. No hemorrhage. No edema. Ventricles: Normal. No ventriculomegaly. Bones/joints: Unremarkable. No acute fracture. Sinuses: Visualized sinuses are unremarkable. No fluid levels. Mastoid air cells: Visualized mastoid air cells are well aerated. Soft tissues: Unremarkable. IMPRESSION: No acute intracranial abnormality. Electronically signed by: Luis Cerda On 03/18/2019 23:51:15 PM
[2019-03-19 06:00] VITALS: BP 134/86
[2019-03-19 06:07] LABS: HEMATOCRIT 37.1 % (36.0-47.0); HEMOGLOBIN 11.7 g/dl (12.0-15.5); MEAN CORPUSCULAR HEMOGLOBIN 31.4 pg (27.0-33.0); MEAN CORPUSCULAR HGB CONC 31.5 g/dl (32.0-36.5); MEAN CORPUSCULAR VOLUME 99.5 fl (80.0-96.0); PLATELET COUNT, AUTOMATED 236 10^3/uL (150-450); RED BLOOD COUNT 3.73 10^6/uL (4.00-5.40); WHITE BLOOD COUNT 7.8 10^3/uL (4.0-10.0)
[2019-03-19] MEDS: HEPARIN SOD (PORCINE) 5000 UNITS/ML VIAL SC SCH ×3 (06:17→21:07)
[2019-03-19] MEDS: LEVOTHYROXINE 50MCG TABLET (0.05MG) PO SCH (06:17)
[2019-03-19 06:30] LABS: ALBUMIN 3.3 GM/DL (3.2-5.2); BILIRUBIN,TOTAL 0.3 MG/DL (0.2-1.0); CALCIUM LEVEL 8.8 MG/DL (8.8-10.2); CREATININE FOR GFR 1.11 MG/DL (0.55-1.30); GLOMERULAR FILTRATION RATE 52.2 (>45); POTASSIUM SERUM 3.8 MEQ/L (3.5-5.1); TOTAL PROTEIN 6.3 GM/DL (6.4-8.2)
[2019-03-19] MEDS: ASPIRIN 81 MG ENTERIC TAB PO SCH (08:37)
[2019-03-19] MEDS: FLUTICASONE PROP 0.05% NASAL SPRAY 16 GM (FLONASE) NARES SCH (08:37)
[2019-03-19] MEDS: ATORVASTATIN 10 MG TAB PO SCH (08:38)
[2019-03-19] MEDS: DOCUSATE SODIUM 100 MG CAP PO SCH ×2 (08:38→20:38)
[2019-03-19] MEDS: ASCORBIC ACID 500 MG TAB PO SCH (08:38)
[2019-03-19] MEDS: busPIRone 5 MG TAB PO SCH ×2 (08:38→20:38)
[2019-03-19] MEDS: oxyBUTYnin *DITROPAN XL* 5 MG TABCR PO SCH (08:38)
[2019-03-19] MEDS: busPIRone 10 MG TAB PO SCH ×2 (08:38→20:38)
[2019-03-19] MEDS: QUEtiapine FUMARATE 100 MG TAB PO SCH ×2 (08:47→20:38)
--- NOTE | 2019-03-19 13:35 | IPNPDOC ---
Text Note Date of Service The patient was seen on 03/19/19. NOTE SUBJECTIVE: This is a 69-year-old female with a past medical history significant for schizophrenia, hypothyroidism, hyperlipidemia, presented with altered mental status, secondary to UTI. This morning patient was examined and her room, patient was eating breakfast. She is orientated to her name, not orientated to living situation, patient believes she lives in [place] with her sisters. Patient currently resides at [facility]. She also has difficulty with recall. According to nursing staff. Patient was independent at [facility]. Does not appear to be independent in this hospital stay. Patient was previously ciprofloxacin for UTI, this was changed to ceftriaxone. This is day 2 of antibiotics. OBJECTIVE: PHYSICAL EXAMINATION: GENERAL APPEARANCE: Alert no acute distress. Orientated to person, not to place or year. She is questionable appropriately with difficulty with recall. LUNGS: Clear to auscultation bilaterally. HEART: Normal S1, S2. No murmurs, no rubs, no gallops ABDOMEN: Soft. No masses. Bowel sounds are present. EXTREMITIES: Moves all extremities equally. No gross deformities. PULSES: 2+ upper and lower extremity . Neuro; no focal neurological deficit LABORATORY DATA: Please see below. IMAGING: Head CT; no focal acute intracranial abnormalities ASSEMENT AND PLAN: ASSESSMENT: 69-year-old female with history of schizophrenia, hypothyroidism and recurrent UTIs, recently diagnosed with UTI being treated with ciprofloxacin [facility] with worsening altered mental status. PLAN: 1. Altered mental status secondary to UTI (urinalysis was positive for 1+ bacteria), head CT, chest CT, CT of the abdomen and pelvis showed no acute pathology or abnormality. Prior to admission patient was independent at [facility] -Only oriented to person, able to answer questions appropriately, with some difficulty recall. She has shown some improvement since admission, however, she has not returned to base line Switch ciprofloxacin to ceftriaxone, -No abnormal electrolyte abnormality -No leukocytosis -Will consider psych consult if patient dose not improve 2. Schizophrenia. Continue home meds. 3. Hypothyroidism. Continue levothyroxine. 4. Hyperlipidemia. Continue home atorvastatin DVT prophylaxis: Heparin subcutaneous GI prophylaxis: Not needed Attending addendum: I personally saw and examined the patient. I discussed the care and management of this patient with Resident and agree with the plan above. Additional information below: - Admitted for AMS, likely from UTI/medication, slightly improved today, imaging/blood work negative for alternative etiology. If symptoms persist/worsen, will consider Psych consult. VS,Fishbone, I+O VS, Fishbone, I+O Laboratory Tests 03/18/19 15:41 03/19/19 05:28 Vital Signs Date Time Temp Pulse Resp B/P (MAP) Pulse Ox O2 Delivery O2 Flow Rate FiO2 03/19/19 06:00 97.6 97 18 134/86 (102) 97 Room Air I&O- Last 24 Hours up to 6 AM 03/19/19 05:59 Intake Total 300 ml Balance 300 ml GME ATTESTATION GME ATTESTATION My faculty preceptor for this patient encounter was physically present during the encounter and was fully available. All aspects of the patient interview, examination, medical decision making process, and medical care plan development were reviewed and approved by the faculty preceptor. The faculty preceptor is aware and concurs with the plan as stated in the body of this note and will attest to such by his/her cosignature. MARVIN GALVAN DO Mar 19, 2019 10:46 GABRIEL GALVAN MD Mar 19, 2019 17:10
--- NOTE | 2019-03-19 16:23 | ECGEPIP ---
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
[2019-03-19] MEDS: cefTRIAXone SOD 1 GM in D5W MINI-BAG PLUS 50 ML IV SCH (20:38)
[2019-03-19 22:00] VITALS: BP 120/66
[2019-03-20 06:00] VITALS: BP 139/70
[2019-03-20] MEDS: HEPARIN SOD (PORCINE) 5000 UNITS/ML VIAL SC SCH (06:13)
[2019-03-20] MEDS: LEVOTHYROXINE 50MCG TABLET (0.05MG) PO SCH (06:13)
[2019-03-20] MEDS ORDERED: ACETAMINOPHEN 325 MG TAB PO PRN (06:15)
[2019-03-20] MEDS: DOCUSATE SODIUM 100 MG CAP PO SCH (08:27)
[2019-03-20] MEDS: ATORVASTATIN 10 MG TAB PO SCH (08:27)
[2019-03-20] MEDS: QUEtiapine FUMARATE 100 MG TAB PO SCH (08:27)
[2019-03-20] MEDS: ASCORBIC ACID 500 MG TAB PO SCH (08:27)
[2019-03-20] MEDS: busPIRone 5 MG TAB PO SCH (08:28)
[2019-03-20] MEDS: FLUTICASONE PROP 0.05% NASAL SPRAY 16 GM (FLONASE) NARES SCH (08:28)
[2019-03-20] MEDS: busPIRone 10 MG TAB PO SCH (08:28)
[2019-03-20] MEDS: oxyBUTYnin *DITROPAN XL* 5 MG TABCR PO SCH (08:28)
[2019-03-20] MEDS: ASPIRIN 81 MG ENTERIC TAB PO SCH (08:28)
[2019-03-20] MEDS ORDERED: CEFDINIR 300 MG CAP (OMNICEF) PO SCH (09:00)
--- NOTE | 2019-03-20 10:36 | IPNPDOC ---
Text Note Date of Service The patient was seen on 03/20/19. NOTE SUBJECTIVE: This is a 69-year-old female with a past medical history significant for schizophrenia, hypothyroidism, hyperlipidemia, presented with altered mental status, secondary to UTI. She was examined in her room this morning. Her mentation is improving, but she continues to be only oriented to person. When asked about location, she answers [place], and does not remember where she lives. Denies chest pain, denies nausea, denied vomiting, OBJECTIVE: PHYSICAL EXAMINATION: GENERAL APPEARANCE: Alert no acute distress. Arterial person, not oriented to location, she is questions appropriately, LUNGS: Clear to auscultation bilaterally. HEART: Normal S1, S2. No murmurs, no rubs, no gallops EXTREMITIES: Moves all extremities equally. No gross deformities. Neuro; no focal neurological deficit, 5 out of 5 muscle strength, confused about living situation, no signs of patient is responding to external stimuli LABORATORY DATA: Please see below. IMAGING: Head CT; no focal acute intracranial abnormalities ASSEMENT AND PLAN: ASSESSMENT: 69-year-old female with history of schizophrenia, hypothyroidism and recurrent UTIs, recently diagnosed with UTI being treated with ciprofloxacin presents from snf with worsening altered mental status. PLAN: 1. Altered mental status secondary to UTI (urinalysis was positive for 1+ bacteria), head CT, chest CT, CT of the abdomen and pelvis showed no acute pathology or abnormality. Prior to admission patient was independent at [facility] -Continues to be only oriented to person, continues to have poor recall. According to [facility] nursing staff, this is the patient's baseline. DC ceftriaxone. Today, patient will be started on cefdinir 300 P.O BID -No abnormal electrolyte abnormality -No leukocytosis, no fevers -Will consider psych consult if patient dose not improve -Likely discharge tomorrow 2. Schizophrenia. Continue home meds. 3. Hypothyroidism. Continue levothyroxine. 4. Hyperlipidemia. Continue home atorvastatin DVT prophylaxis: Heparin subcutaneous VS,Fishbone, I+O VS, Fishbone, I+O Vital Signs Date Time Temp Pulse Resp B/P (MAP) Pulse Ox O2 Delivery O2 Flow Rate FiO2 03/20/19 06:00 98.2 83 16 139/70 (93) 95 Room Air I&O- Last 24 Hours up to 6 AM 03/20/19 06:00 Intake Total 2090 ml Output Total 0 ml Balance 2090 ml GME ATTESTATION GME ATTESTATION My faculty preceptor for this patient encounter was physically present during the encounter and was fully available. All aspects of the patient interview, examination, medical decision making process, and medical care plan development were reviewed and approved by the faculty preceptor. The faculty preceptor is aware and concurs with the plan as stated in the body of this note and will attest to such by his/her cosignature. MARVIN GALVAN DO Mar 20, 2019 07:43
[2019-03-20 11:45] LABS: HEMATOCRIT 39.4 % (36.0-47.0); HEMOGLOBIN 12.6 g/dl (12.0-15.5); MEAN CORPUSCULAR HEMOGLOBIN 31.7 pg (27.0-33.0); MEAN CORPUSCULAR VOLUME 99.2 fl (80.0-96.0); PLATELET COUNT, AUTOMATED 254 10^3/uL (150-450); RED BLOOD COUNT 3.97 10^6/uL (4.00-5.40); WHITE BLOOD COUNT 6.8 10^3/uL (4.0-10.0)
[2019-03-20 12:06] LABS: BLOOD UREA NITROGEN 16 MG/DL (7-18); CARBON DIOXIDE LEVEL 26 MEQ/L (21-32); CHLORIDE LEVEL 108 MEQ/L (98-107); CREATININE FOR GFR 0.88 MG/DL (0.55-1.30); GLOMERULAR FILTRATION RATE > 60.0 (>45); GLUCOSE, FASTING 106 MG/DL (70-100); POTASSIUM SERUM 4.4 MEQ/L (3.5-5.1); SODIUM LEVEL 141 MEQ/L (136-145)
[2019-03-20] MEDS ORDERED: CEFD300CAP PO (12:24)
[2019-03-20] MEDS ORDERED: DEXTROSE 50% 50 ML SYRINGE IV PRN (13:00)
[2019-03-20] MEDS ORDERED: GLUCAGON FOR INJ 1 MG VIAL (J1610) SC PRN (13:00)
[2019-03-20] MEDS ORDERED: GLUCOSE 4 GM CHEW TABLET PO PRN (13:00)
--- NOTE | 2019-03-20 16:53 | DS.PDOC ---
Discharge Summary General Date of Admission Mar 18, 2019 at 14:16 Date of Discharge 03/20/19 Discharge Summary PROCEDURES PERFORMED DURING STAY: None ADMITTING DIAGNOSES / DISCHARGE DIAGNOSES: Metabolic encephalopathy - likely 2/2 medication effect UTI; possible failure of outpatient antibiotics Macrocytic anemia COMPLICATIONS/CHIEF COMPLAINT: Ams;Hypothyroidism;Schizophrenia. HISTORY OF PRESENT ILLNESS/HOSPITAL COURSE: Patient is a 69-year-old female resident at [facility], with a past medical history significant for schizophrenia, hypothyroidism and hyperlipidemia. Whom presented for altered mental status that started a few days prior to her presentation. According to [facility] staff patient had recently been diagnosed with a UTI was given ciprofloxacin. Patient herself is a poor historian. On presentation patient was confused, only orientated to self, and was unable to answer questions appropriately. She was admitted and started ceftriaxone, her ciprofloxacin was discontinued because of suspected contribution to altered mental status. She was afebrile during stay, with normal white count, and she was hemodynamically stable during her entire stay. Her mentation improved, and returned to baseline. Her behavior, mentation, and responses was discussed with [facility] nursing staff, who confirmed the patient was back to baseline. Patient was discharged back to [facility]. There were no issues of concern on discharge. DISCHARGE MEDICATIONS: Please see below. ALLERGIES: Please see below. PHYSICAL EXAMINATION ON DISCHARGE: VITAL SIGNS: Please see below. VITALS: See Below GENERAL APPEARANCE: Alert no acute distress. SKIN: Warm, well perfused. LUNGS: Clear to auscultation bilaterally. HEART: Normal S1, S2. No murmurs, no rubs, no gallops ABDOMEN: Soft. No masses. Bowel sounds are present. EXTREMITIES: Moves all extremities equally. No gross deformities. PULSES: 2+ upper and lower extremity . LABORATORY DATA: Please see below. 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 The recinos-white differentiation is maintained. No hemorrhage. No edema. Ventricles: Normal. No ventriculomegaly. Bones/joints: Unremarkable. No acute fracture. Sinuses: Visualized sinuses are unremarkable. No fluid levels. Mastoid air cells: Visualized mastoid air cells are well aerated. Soft tissues: Unremarkable. Abdomen and pelvic CT Impression: No acute abdominopelvic pathology appreciated. Chest CT Impression: No acute mediastinal or pleuroparenchymal process Chest x-ray Impression: No acute cardiopulmonary process appreciated PROGNOSIS: Fair ACTIVITY: As tolerated DIET: As Tolerated DISCHARGE PLAN: Back to [facility] DISPOSITION: 01 Home, Self-Care. DISCHARGE INSTRUCTIONS: 1. Follow-up with routine care 2. Remain compliant with treatment plan and mediations 3. Return to the ER if you experience any problems ITEMS TO FOLLOWUP ON ON OUTPATIENT: 1. Schizophrenia 2. Hypothyroidism 3. Hyperlipidemia DISCHARGE CONDITION: Stable TIME SPENT ON DISCHARGE: 20 minutes Vital Signs/I&Os Vital Signs Date Time Temp Pulse Resp B/P (MAP) Pulse Ox O2 Delivery O2 Flow Rate FiO2 03/20/19 06:00 98.2 83 16 139/70 (93) 95 Room Air I&O- Last 24 Hours up to 6 AM 03/20/19 06:00 Intake Total 2090 ml Output Total 0 ml Balance 2090 ml Laboratory Data Labs 24H Laboratory Tests 2 03/20/19 11:15: Nucleated Red Blood Cells % (auto) 0.0, Anion Gap 7L, Glomerular Filtration Rate > 60.0, Calcium Level 9.0 CBC/BMP Laboratory Tests 03/20/19 11:15 Microbiology Microbiology 03/18/19 Blood Culture - Preliminary, Resulted No growth after 24 hours . All specim... 03/18/19 Blood Culture - Preliminary, Resulted No Growth after 48 hours. All Specime... Discharge Medications Scheduled Ascorbic Acid (Ascorbic Acid) 500 Mg Tablet, 500 MG PO DAILY, (Reported) Aspirin (Aspir 81) 81 Mg Tablet.dr, 81 MG PO DAILY, (Reported) Atorvastatin Calcium (Lipitor) 10 Mg Tablet, 10 MG PO DAILY, (Reported) Buspirone HCl (Buspirone HCl) 15 Mg Tablet, 15 MG PO BID, (Reported) TOTAL DOSE: 25 MG BID Buspirone HCl (Buspirone HCl) 10 Mg Tablet, 10 MG PO BID, (Reported) TOTAL DOSE: 25 MG BID Calcium Carbonate/Vitamin D3 (Calcium 600-Vit D3 400 Tablet) 1 Each Tablet, 1 TAB PO DAILY, (Reported) Cefdinir (Cefdinir) 300 Mg Capsule, 300 MG PO BID Cholecalciferol (Vitamin D3) (Vitamin D3) 5,000 Unit Tab.rapdis, 5,000 UNIT PO DAILY, (Reported) Docusate Sodium (Colace) 100 Mg Capsule, 100 MG PO BID, (Reported) Fluticasone Propionate (Fluticasone Propionate) 16 Gm [place].susp, 2 SPRAY NARES DAILY, (Reported) Levothyroxine Sodium (Levoxyl) 50 Mcg Tablet, 50 MCG PO QAM, (Reported) Multivitamin (Multivitamins) 1 Each Capsule, 1 CAP PO DAILY, (Reported) Oxybutynin Chloride (Oxybutynin Chloride ER) 10 Mg Tab.er.24, 10 MG PO DAILY, (Reported) Quetiapine Fumarate (Quetiapine Fumarate) 100 Mg Tablet, 100 MG PO QAM, (Reported) Quetiapine Fumarate (Quetiapine Fumarate) 300 Mg Tablet, 300 MG PO QHS, (Reported) Allergies Coded Allergies: SEASONAL ALLERGIES (Verified Allergy, Unknown, 10/31/17) ziprasidone (Verified Allergy, Unknown, 02/06/19) GME ATTESTATION GME ATTESTATION My faculty preceptor for this patient encounter was physically present during the encounter and was fully available. All aspects of the patient interview, examination, medical decision making process, and medical care plan development were reviewed and approved by the faculty preceptor. The faculty preceptor is aware and concurs with the plan as stated in the body of this note and will at test to such by his/her cosignature. ATTENDING NOTE I, Eri Azul, have independently examined this patient and performed my own physical exam, as well as reviewed the documentation and edited where necessary. I have discussed in detail with the resident / student the findings and plan of treatment as documented by the resident / student and edited their note. I agree with their findings and treatment plan and have edited their documentation. I will continue to follow the patient during this hospital stay. Time spent on discharge 20 minutes MARVIN GALVAN DO Mar 20, 2019 16:53 ERI AZUL MD Mar 20, 2019 18:00
== END 2019-03-20 13:59 | disposition home or self-care (01) ==
LOC: M ED 14:15 → M ED INP 14:16 → M MSPAV 21:18
PROVIDERS: ADMIT Internal Medicine; ATTEND Internal Medicine
DX: G93.41 Metabolic encephalopathy (principal); N39.0 Urinary tract infection, site not specified; D64.9 Anemia, unspecified; E03.9 Hypothyroidism, unspecified; E78.49 Other hyperlipidemia; F20.9 Schizophrenia, unspecified; Z79.82 Long term (current) use of aspirin; Z79.899 Other long term (current) drug therapy; Z88.8 Allergy status to other drugs, medicaments and biological substances
CPT/HCPCS: 36415; 70450; 71045; 71260; 74177; 80048; 80053; 80076; 81001; 82140; 82550; 82553; 83605; 83735; 83930; 84443; 84484; 85025; 85027; 87040; 93005; 93041; 94760; 96365; 96372; 96375; 99285; G0378; J0696; Q9967

== ENCOUNTER 2019-09-26 09:52 | Inpatient (IN) | payer MEDICARE, MEDICAID ==
[~2019-09-26] VITALS: Ht 154.9 cm; Wt 68.5 kg
[~2019-09-26 09:52] MED LIST changes: +CIPR-250 PO; -OXYB10TA2 PO; +OXYB10TA23 PO; +QUET100T2 PO; +QUET1TAB10 PO; -QUET1TAB8 PO
[2019-09-26] MEDS ORDERED: DITR1TAB PO (10:05)
[2019-09-26] MEDS ORDERED: CIPR500T3 PO (10:06)
[2019-09-26] MEDS ORDERED: haloperidoL 5 MG TAB PO STA (10:47)
[2019-09-26 11:14] LABS: HEMATOCRIT 39.1 % (36.0-47.0); HEMOGLOBIN 12.3 g/dl (12.0-15.5); MEAN CORPUSCULAR HEMOGLOBIN 31.1 pg (27.0-33.0); MEAN CORPUSCULAR HGB CONC 31.5 g/dl (32.0-36.5); MEAN CORPUSCULAR VOLUME 98.7 fl (80.0-96.0); PLATELET COUNT, AUTOMATED 278 10^3/uL (150-450); RED BLOOD COUNT 3.96 10^6/uL (4.00-5.40); WHITE BLOOD COUNT 9.1 10^3/uL (4.0-10.0)
[2019-09-26 11:34] LABS: AMPHETAMINES LEVEL URINE NEGATIVE (NEGATIVE); BARBITURATES URINE NEGATIVE (NEGATIVE); BENZODIAZEPINES URINE NEGATIVE (NEGATIVE); CANNABINOIDS URINE NEGATIVE (NEGATIVE); COCAINE METABOLITE URINE NEGATIVE (NEGATIVE); METHADONE URINE NEGATIVE (NEGATIVE); OPIATES URINE NEGATIVE (NEGATIVE); PHENCYCLIDINE URINE NEGATIVE (NEGATIVE)
[2019-09-26 11:39] LABS: OSMOLALITY SERUM 292 MOSM/KG (280-301)
[2019-09-26 11:50] LABS: ACETAMINOPHEN LEVEL < 2.0 UG/ML (10.0-30.0); ALT/SGPT 78 U/L (12-78); BILIRUBIN,DIRECT < 0.1 MG/DL (0.0-0.2); BILIRUBIN,TOTAL 0.4 MG/DL (0.2-1.0); BLOOD UREA NITROGEN 18 MG/DL (7-18); CALCIUM LEVEL 9.3 MG/DL (8.8-10.2); CARBON DIOXIDE LEVEL 28 MEQ/L (21-32); CHLORIDE LEVEL 107 MEQ/L (98-107); CK-MB VALUE MASS 8.9 NG/ML (<3.6); CPK CREATINE PHOSPHOKINASE 2916 U/L (26-192); CREATININE FOR GFR 1.18 MG/DL (0.55-1.30); ETHYL ALCOHOL (ETHANOL) < 0.003 % (0.000-0.010); GLOMERULAR FILTRATION RATE 48.6 (>45); GLUCOSE, FASTING 108 MG/DL (70-100); MB/CK RELATIVE INDEX 0.31 (< OR =4); SALICYLATE LEVEL < 1.7 MG/DL (5.0-30.0); SODIUM LEVEL 141 MEQ/L (136-145); TOTAL PROTEIN 7.3 GM/DL (6.4-8.2); TROPONIN I < 0.02 NG/ML (< 0.10)
[2019-09-26] MEDS ORDERED: LORazepam 1 MG TAB PO ONE (16:30)
--- NOTE | 2019-09-26 17:25 | MHCRPDOC ---
[facility] Consultation Consultation Phone Call Anahi Collado MRN: N/A Date of : N/A Date of Service: 09/26/2019 Summary Phone consultation undertaken from ER. Initially ER team wanted to admit patient to psych. However, after extensive review of her records, it appears that she had been admitted in March of 2019 for encephalopathy related to ciprofloxacin. She is a [facility] patient with what appears to be a basal ganglia, old infarct and probable neurocognitive problems. After she was discharged from the medical floor in March 2019, she subsequently returned to her baseline mental status. She does reportedly have a diagnosis of schizophrenia, however after review of her recent outpatient prescriptions, it appears that on the same day she had marked behavioral changes, March 24. She was also prescribed ciprofloxacin again likely provoking confusion again. The patient is generally disorientated and at this time, I will recommend that she be treated on medicine primarily for encephalopathy. Recommend that medicine may pursue a second psychiatric consult if her symptoms do not resolve as she is discontinued on ciprofloxacin much as she had done in March 2019. If there are any concerns or this course does not go as planned, please reconsult psychiatry and we will be glad to assess the patient for further need of treatment. Tuesday Vital Signs Vital Signs Date Time Temp Pulse Resp B/P (MAP) Pulse Ox O2 Delivery O2 Flow Rate FiO2 09/26/19 13:00 96.7 100 18 187/136 (153) 99 Room Air Laboratory Data 24H Labs Laboratory Tests 2 09/26/19 11:00: Nucleated Red Blood Cells % (auto) 0.0, Urine Color YELLOW, Urine Appearance HAZY, Urine pH 6.0, Urine Specific [place] 1.003, Urine Protein NEGATIVE, Urine Glucose (UA) NEGATIVE, Urine Ketones NEGATIVE, Urine Blood 1+H, Urine Nitrite NEGATIVE, Urine Bilirubin NEGATIVE, Urine Urobilinogen 0.2, Urine Leukocyte Esterase NEGATIVE, Urine WBC (Auto) 2, Urine RBC (Auto) 2, Urine Hyaline Casts (Auto) 0, Urine Bacteria (Auto) 1+H, Urine Squamous Epithelial Cells 0, Urine Amorphous Sediment SMALLH, Urine Sperm (Auto) , Anion Gap 6L, Glomerular Filtration Rate 48.6, Osmolality 292, Calcium Level 9.3, Total Bilirubin 0.4, Direct Bilirubin < 0.1, Aspartate Amino Transf (AST/SGOT) 131H, Alanine Aminotransferase (ALT/SGPT) 78, Alkaline Phosphatase 106, Ammonia < 10, Total Creatine Kinase 2916H, Creatine Kinase MB 8.9H, Creatine Kinase MB Relative Index 0.31, Troponin I < 0.02, Total Protein 7.3, Albumin 4.0, Albumin/Globulin Ratio 1.21, Thyroid Stimulating Hormone (TSH) 3.160, Salicylates Level < 1.7L, Urine Opiates Screen NEGATIVE, Urine Methadone Screen NEGATIVE, Acetaminophen Level < 2.0L, Urine Barbiturates Screen NEGATIVE, Urine Phencyclidine Screen NEGATIVE, Urine Amphetamines Screen NEGATIVE, Urine Benzodiazepines Screen NEGATIVE, Urine Cocaine Metabolite Screen NEGATIVE, Urine Cannabinoids Screen NEGATIVE, Ethyl Alcohol Level < 0.003 Home Medications Current Medications Current Medications Medications (Trade) Dose Ordered Sig/Vicki Route PRN Reason Start Time Stop Time Status Last Admin Dose Admin Haloperidol (Haldol) 5 mg STAT STAT PO 09/26/19 10:47 09/26/19 10:48 DC 09/26/19 11:11 Scheduled Ascorbic Acid (Ascorbic Acid) 500 Mg Tablet, 500 MG PO DAILY, (Reported) Aspirin (Aspir 81) 81 Mg Tablet.dr, 81 MG PO DAILY, (Reported) Atorvastatin Calcium (Lipitor) 10 Mg Tablet, 10 MG PO DAILY, (Reported) Buspirone HCl (Buspirone HCl) 15 Mg Tablet, 15 MG PO BID, (Reported) 25MG TOTAL BID Buspirone HCl (Buspirone HCl) 10 Mg Tablet, 10 MG PO BID, (Reported) 25MG TOTAL BID Calcium Carbonate/Vitamin D3 (Calcium 600-Vit D3 400 Tablet) 1 Each Tablet, 1 TAB PO DAILY, (Reported) Cholecalciferol (Vitamin D3) (Vitamin D3) 1,000 Unit Tablet, 5,000 UNITS PO DAILY, (Reported) Ciprofloxacin HCl (Ciprofloxacin HCl) 500 Mg Tablet, 500 MG PO BID, (Reported) FILLED 09/24/19 FOR 3 DAYS Docusate Sodium (Colace) 100 Mg Capsule, 100 MG PO BID, (Reported) Estradiol (Estrace) 42.5 Gm Cream.appl, 0.5 GRAM PV QWEEK, (Reported) SUNDAYS QHS Fluticasone Propionate (Fluticasone Propionate) 16 Gm [place].susp, 2 SPRAY NARES DAILY, (Reported) Levothyroxine Sodium (Levoxyl) 50 Mcg Tablet, 50 MCG PO QAM, (Reported) Multivitamin (Multivitamins) 1 Each Capsule, 1 CAP PO DAILY, (Reported) Oxybutynin Chloride (Ditropan Xl) 10 Mg Tab.er.24, 10 MG PO DAILY, (Reported) Quetiapine Fumarate (Quetiapine Fumarate) 100 Mg Tablet, 100 MG PO DAILY, (Reported) Quetiapine Fumarate (Seroquel) 300 Mg Tablet, 300 MG PO QHS, (Reported) Allergies Coded Allergies: SEASONAL ALLERGIES (Verified Allergy, Unknown, 10/31/17) ziprasidone (Verified Allergy, Unknown, 02/06/19) ciprofloxacin (Verified Adverse Reaction, Severe, toxic encephalopathy, 09/27/19) FIDEL LEIGH DO September 26, 2019 17:25
[2019-09-26] MEDS ORDERED: NS 1,000 ML IV ONE (17:30)
[2019-09-26] MEDS ORDERED: ACETAMINOPHEN TAB 650MG DOSE (2X325MG) PO PRN (18:00)
--- NOTE | 2019-09-26 18:10 | HPEPDOC ---
General Date of Admission Date of Service: September 26, 2019 Chief Complaint The patient is a 69-year-old female admitted with a reason for visit of MHE. Source: Patient, RN/MD, EMS, EMS notes reviewed, Old records Exam Limitations: Clinical conditions Timing/Duration: Other (since this morning) Severity: Other (, not applicable) Associated Symptoms: Other (agitation, suicidal and homicidal) History of Present Illness This is a 69 years old white female from [facility] was brought into emergency room when [facility] noticed to have a real changes. Patient wanted to hurt herself break everybody else's neck and burned the placed. Note, patient was recently started on Cipro for UTI and checking her old records and speaking with the ED physician. Patient had a similar episode of agitation last time and she was prescribed Cipro and which had resolved after a few days, then I interviewed patient. She is not suicidal or homicidal, but she still wants to bump the placed down. As per patient, she is very anxious. She does not know why. No nausea, vomiting, chest pain or shortness of breath Home Medications Scheduled Ascorbic Acid (Ascorbic Acid) 500 Mg Tablet, 500 MG PO DAILY, (Reported) Aspirin (Aspir 81) 81 Mg Tablet.dr, 81 MG PO DAILY, (Reported) Atorvastatin Calcium (Lipitor) 10 Mg Tablet, 10 MG PO DAILY, (Reported) Buspirone HCl (Buspirone HCl) 15 Mg Tablet, 15 MG PO BID, (Reported) 25MG TOTAL BID Buspirone HCl (Buspirone HCl) 10 Mg Tablet, 10 MG PO BID, (Reported) 25MG TOTAL BID Calcium Carbonate/Vitamin D3 (Calcium 600-Vit D3 400 Tablet) 1 Each Tablet, 1 TAB PO DAILY, (Reported) Cholecalciferol (Vitamin D3) (Vitamin D3) 1,000 Unit Tablet, 5,000 UNITS PO DAILY, (Reported) Ciprofloxacin HCl (Ciprofloxacin HCl) 500 Mg Tablet, 500 MG PO BID, (Reported) FILLED 09/24/19 FOR 3 DAYS Docusate Sodium (Colace) 100 Mg Capsule, 100 MG PO BID, (Reported) Estradiol (Estrace) 42.5 Gm Cream.appl, 0.5 GRAM PV QWEEK, (Reported) SUNDAYS QHS Fluticasone Propionate (Fluticasone Propionate) 16 Gm [place].susp, 2 SPRAY NARES DAILY, (Reported) Levothyroxine Sodium (Levoxyl) 50 Mcg Tablet, 50 MCG PO QAM, (Reported) Multivitamin (Multivitamins) 1 Each Capsule, 1 CAP PO DAILY, (Reported) Oxybutynin Chloride (Ditropan Xl) 10 Mg Tab.er.24, 10 MG PO DAILY, (Reported) Quetiapine Fumarate (Quetiapine Fumarate) 100 Mg Tablet, 100 MG PO DAILY, (Reported) Quetiapine Fumarate (Seroquel) 300 Mg Tablet, 300 MG PO QHS, (Reported) Allergies Coded Allergies: SEASONAL ALLERGIES (Verified Allergy, Unknown, 10/31/17) ziprasidone (Verified Allergy, Unknown, 02/06/19) Past Medical History Medical History Schizophrenia. Intellectual disability, history of orthostatic hypertension, overactive bladder, hypothyroidism, hyperlipidemia, vitamin D deficiency, iron deficiency, allergic rhinitis, history of TIA Surgical History Tubal ligation Family History Unable to obtain family history. Secondary to patient's mental status Social History * Smoker: Denies Alcohol: Denies Drugs: denies A-FIB/CHADSVASC A-FIB History Current/History of A-Fib/PAF?: No Review of Systems Constitutional: Reports: Other (unable to obtained review of systems secondary to pts agitation. Intellectual disability ) Physical Examination General Exam: Positive: Alert, Cooperative Eye Exam: Positive: PERRLA, Conjunctiva & lids normal ENT Exam: Positive: Atraumatic Neck Exam: Positive: Supple Chest Exam: Positive: Clear to auscultation, Normal air movement Heart Exam: Positive: Rate Normal, Normal S1, Normal S2 Abdomen Exam: Positive: Normal bowel sounds, Soft Extremity Exam: Positive: Normal pulses Skin Exam: Positive: Nl turgor and temperature Neuro Exam: Positive: Strength at 5/5 X4 ext, Sensation Intact, Cranial Nerves 3-12 NL Psych Exam: Positive: Anxiety Vital Signs Vital Signs Date Time Temp Pulse Resp B/P (MAP) Pulse Ox O2 Delivery O2 Flow Rate FiO2 09/26/19 13:00 96.7 100 18 187/136 (153) 99 Room Air Laboratory Data Labs 24H Laboratory Tests 2 09/26/19 11:00: Nucleated Red Blood Cells % (auto) 0.0, Urine Color YELLOW, Urine Appearance HAZY, Urine pH 6.0, Urine Specific [place] 1.003, Urine Protein NEGATIVE, Urine Glucose (UA) NEGATIVE, Urine Ketones NEGATIVE, Urine Blood 1+H, Urine Nitrite NEGATIVE, Urine Bilirubin NEGATIVE, Urine Urobilinogen 0.2, Urine Leukocyte Esterase NEGATIVE, Urine WBC (Auto) 2, Urine RBC (Auto) 2, Urine Hyaline Casts (Auto) 0, Urine Bacteria (Auto) 1+H, Urine Squamous Epithelial Cells 0, Urine Amorphous Sediment SMALLH, Urine Sperm (Auto) , Anion Gap 6L, Glomerular Filtration Rate 48.6, Osmolality 292, Calcium Level 9.3, Total Bilirubin 0.4, Direct Bilirubin < 0.1, Aspartate Amino Transf (AST/SGOT) 131H, Alanine Aminotransferase (ALT/SGPT) 78, Alkaline Phosphatase 106, Ammonia < 10, Total Creatine Kinase 2916H, Creatine Kinase MB 8.9H, Creatine Kinase MB Relative Index 0.31, Troponin I < 0.02, Total Protein 7.3, Albumin 4.0, Albumin/Globulin Ratio 1.21, Thyroid Stimulating Hormone (TSH) 3.160, Salicylates Level < 1.7L, Urine Opiates Screen NEGATIVE, Urine Methadone Screen NEGATIVE, Acetaminophen Level < 2.0L, Urine Barbiturates Screen NEGATIVE, Urine Phencyclidine Screen NEGATIVE, Urine Amphetamines Screen NEGATIVE, Urine Benzodiazepines Screen NEGATIVE, Urine Cocaine Metabolite Screen NEGATIVE, Urine Cannabinoids Screen NEGATIVE, Ethyl Alcohol Level < 0.003 09/26/19 17:22: CBC/BMP Laboratory Tests 09/26/19 11:00 Problems (1) Encephalopathy, toxic Status: Acute Problem Text: 69 years old white female with past medical history of schizophrenia. Intellectual disability, hypothyroidism, hyperlipidemia, previously had a similar encephalopathy, altered mental status after she took Cipro and again she was started on Cipro for UTI by her PCP. This morning patient was suicidal, homicidal when fed into by another prison right now. She is not suicidal but she is still wants to cause harm to her home. Since patient has a high CPK is. We were called in to admit patient to medical service and a psychiatric consult also was requested. Admit patient to MedSurg floor IV fluid normal saline 100 mL per hour Ativan 1 mg IV every 6 hours when necessary for agitation Continue all her home meds CBC, CMP, CPK in a.m. Will hold Cipro and a statin. Her CPK has normalized Diet regular Activity as tolerated DVT prophylaxis and Lovenox Note: Dr. Russell has called patient's PCP, Hilton Funez and informed him about patient's adverse drug reaction to Cipro (2) Adverse drug effect Status: Acute Problem Text: IV fluids as per orders Monitor clinical status Symptomatic care (3) Schizophrenia Status: Chronic Problem Text: Continue home meds (4) Intellectual disability Status: Chronic Problem Text: Continue home meds (5) Hypothyroidism Status: Chronic Problem Text: Continue home meds (6) Hyperlipemia Status: Chronic Problem Text: Continue home meds (7) Rhabdomyolysis Status: Acute Problem Text: Most likely secondary to drug interaction Will monitor CPKs in a.m. On IV fluids Plan / VTE VTE Prophylaxis Ordered?: Yes DILIP NOBLE MD September 26, 2019 18:09
[2019-09-26] MEDS ORDERED: BUSP15TA47 PO (18:21)
[2019-09-26] MEDS ORDERED: BUSP10TA PO (18:21)
[2019-09-26] MEDS ORDERED: ESTR1CRE PV (18:21)
[2019-09-26] MEDS ORDERED: VITAD1000T PO (18:21)
[2019-09-26] MEDS ORDERED: SERO1TAB2 PO (18:21)
[2019-09-26 22:10] VITALS: BP 148/70
[2019-09-26] MEDS: ENOXAPARIN 40MG/0.4ML SYRINGE (J1650 PER 10MG) SC SCH (22:33)
[2019-09-26] MEDS: NS 1,000 ML IV SCH (22:34)
[2019-09-27] MEDS: LORazepam 2 MG/ML VIAL (J2060) IV PRN (00:50)
[2019-09-27] MEDS: NS 1,000 ML IV SCH ×2 (05:48→14:50)
[2019-09-27 06:00] VITALS: BP 118/79
[2019-09-27 08:09] LABS: ALBUMIN 3.1 GM/DL (3.2-5.2); ALT/SGPT 57 U/L (12-78); BILIRUBIN,TOTAL 0.3 MG/DL (0.2-1.0); BLOOD UREA NITROGEN 14 MG/DL (7-18); CALCIUM LEVEL 7.9 MG/DL (8.8-10.2); CARBON DIOXIDE LEVEL 25 MEQ/L (21-32); CHLORIDE LEVEL 109 MEQ/L (98-107); CPK CREATINE PHOSPHOKINASE 1733 U/L (26-192); CREATININE FOR GFR 0.74 MG/DL (0.55-1.30); GLOMERULAR FILTRATION RATE > 60.0 (>45); GLUCOSE, FASTING 73 MG/DL (70-100); POTASSIUM SERUM 4.2 MEQ/L (3.5-5.1); SODIUM LEVEL 142 MEQ/L (136-145); TOTAL PROTEIN 6.1 GM/DL (6.4-8.2)
--- NOTE | 2019-09-27 10:24 | IPNPDOC ---
Subjective Date Seen The patient was seen on 09/27/19. Subjective Chief Complaint/HPI Patient is comfortable in no distress. Now she wants to go back to her long term General: Denies: ROS Unobtainable, Chills, Night Sweats, Fatigue, Malaise, Normal Appetite, Other Symptoms Constitutional: Denies: Chills, Fever, Malaise, Night Sweats, Weakness, Fatigue, Weight Loss, Lethargy, Other Pulmonary: Denies: Dyspnea, Cough, Pleuritic Chest Pain, Other Symptoms Cardiovascular: Denies: Chest Pain, Palpitations, Orthopnea, Paroxysmal Noc. Dyspnea, Edema, Lt Headedness, Other Symptoms Gastrointestinal: Denies: Nausea, Vomiting, Abdominal Pain, Diarrhea, Constipation, Melena, Hematochezia, Other Symptoms Musculoskeletal: Denies: Neck Pain, Back Pain, Shoulder Pain, Arm Pain, Hand Pain, Leg Pain, Foot Pain, Joint Pain, Muscle Pain, Spasms, Other Symptoms Neurological: Denies: Weakness, Numbness, Change in speech, Confusion Objective Physical Examination Neck Exam: Positive: Supple Chest Exam: Positive: Clear to auscultation, Normal air movement Heart Exam: Positive: Rate Normal, Normal S1, Normal S2 Abdomen Exam: Positive: Normal bowel sounds, Soft Extremity Exam: Positive: Normal pulses Skin Exam: Positive: Nl turgor and temperature Assessment /Plan Problems (1) Rhabdomyolysis Status: Acute Problem Text: Improving progressively Continue IV fluids, NS at 100 mL per hour CPKs level is 1733 Repeat labs in a.m. (2) Encephalopathy, toxic Status: Acute Problem Text: Most likely secondary to Cipro interaction/drug reaction Slowly improving Continue conservative medical management and close monitoring (3) Intellectual disability Status: Chronic Problem Text: Stable (4) Hypothyroidism Status: Chronic Problem Text: Continue home meds (5) Hyperlipemia Status: Chronic Problem Text: Continue home meds (6) Schizophrenia Status: Chronic Problem Text: Complete psych consult is still pending and EMR Continue home meds (7) Adverse drug effect Status: Acute Problem Text: Most likely secondary to Cipro PCP was called from ED by Dr. uRssell and informed regarding patient's recurrent interaction and altered mental status secondary to Cipro Slowly improving. Continue clinical monitoring Plan/VTE VTE Prophylaxis Ordered?: Yes VS, I&O, 24H, Fishbone Vital Signs/I&O Vital Signs Date Time Temp Pulse Resp B/P (MAP) Pulse Ox O2 Delivery O2 Flow Rate FiO2 09/27/19 06:00 97.9 85 18 118/79 (92) 96 Room Air I&O- Last 24 Hours up to 6 AM 09/27/19 06:00 Intake Total 30 ml Output Total 0 ml Balance 30 ml Laboratory Data 24H LABS Laboratory Tests 2 09/26/19 11:00: Nucleated Red Blood Cells % (auto) 0.0, Urine Color YELLOW, Urine Appearance HAZY, Urine pH 6.0, Urine Specific [place] 1.003, Urine Protein NEGATIVE, Urine Glucose (UA) NEGATIVE, Urine Ketones NEGATIVE, Urine Blood 1+H, Urine Nitrite NEGATIVE, Urine Bilirubin NEGATIVE, Urine Urobilinogen 0.2, Urine Leukocyte Esterase NEGATIVE, Urine WBC (Auto) 2, Urine RBC (Auto) 2, Urine Hyaline Casts (Auto) 0, Urine Bacteria (Auto) 1+H, Urine Squamous Epithelial Cells 0, Urine Amorphous Sediment SMALLH, Urine Sperm (Auto) , Anion Gap 6L, Glomerular Filtration Rate 48.6, Osmolality 292, Calcium Level 9.3, Total Bilirubin 0.4, Direct Bilirubin < 0.1, Aspartate Amino Transf (AST/SGOT) 131H, Alanine Aminotransferase (ALT/SGPT) 78, Alkaline Phosphatase 106, Ammonia < 10, Total Creatine Kinase 2916H, Creatine Kinase MB 8.9H, Creatine Kinase MB Relative Index 0.31, Troponin I < 0.02, Total Protein 7.3, Albumin 4.0, Albumin/Globulin Ratio 1.21, Thyroid Stimulating Hormone (TSH) 3.160, Salicylates Level < 1.7L, Urine Opiates Screen NEGATIVE, Urine Methadone Screen NEGATIVE, Acetaminophen Level < 2.0L, Urine Barbiturates Screen NEGATIVE, Urine Phencyclidine Screen NEGATIVE, Urine Amphetamines Screen NEGATIVE, Urine Benzodiazepines Screen NEGATIVE, Urine Cocaine Metabolite Screen NEGATIVE, Urine Cannabinoids Screen NEGATIVE, Ethyl Alcohol Level < 0.003 09/26/19 17:22: Total Creatine Kinase 3062H 09/27/19 06:14: Anion Gap 8, Glomerular Filtration Rate > 60.0, Calcium Level 7.9#L, Total Bilirubin 0.3, Aspartate Amino Transf (AST/SGOT) 88H, Alanine Aminotransferase (ALT/SGPT) 57, Alkaline Phosphatase 86, Total Creatine Kinase 1733H, Total Protein 6.1L, Albumin 3.1#L, Albumin/Globulin Ratio 1.03, Magnesium Level 2.0 CBC/BMP Laboratory Tests 09/26/19 11:00 09/27/19 06:14 DILIP NOBLE MD September 27, 2019 10:24
[2019-09-27 14:00] VITALS: BP 122/75
[2019-09-27] MEDS: ENOXAPARIN 40MG/0.4ML SYRINGE (J1650 PER 10MG) SC SCH (20:02)
[2019-09-27 22:00] VITALS: BP 140/78
[2019-09-28] MEDS: NS 1,000 ML IV SCH ×3 (00:10→20:55)
[2019-09-28 06:00] VITALS: BP 139/71
--- NOTE | 2019-09-28 10:29 | IPNPDOC ---
Subjective Date Seen The patient was seen on 09/28/19. Subjective Chief Complaint/HPI Patient is back to baseline in no apparent distress General: Denies: ROS Unobtainable, Chills, Night Sweats, Fatigue, Malaise, Normal Appetite, Other Symptoms Constitutional: Denies: Chills, Fever, Malaise, Night Sweats, Weakness, Fatigue, Weight Loss, Lethargy, Other Pulmonary: Denies: Dyspnea, Cough, Pleuritic Chest Pain, Other Symptoms Cardiovascular: Denies: Chest Pain, Palpitations, Orthopnea, Paroxysmal Noc. Dyspnea, Edema, Lt Headedness, Other Symptoms Gastrointestinal: Denies: Nausea, Vomiting, Abdominal Pain, Diarrhea, Constipation, Melena, Hematochezia, Other Symptoms Musculoskeletal: Denies: Neck Pain, Back Pain, Shoulder Pain, Arm Pain, Hand Pain, Leg Pain, Foot Pain, Joint Pain, Muscle Pain, Spasms, Other Symptoms Neurological: Denies: Weakness, Numbness, Incoordination, Change in speech, Confusion, Seizures, Other Symptoms Objective Physical Examination Neck Exam: Positive: Supple Chest Exam: Positive: Clear to auscultation, Normal air movement Heart Exam: Positive: Rate Normal, Normal S1, Normal S2 Abdomen Exam: Positive: Normal bowel sounds, Soft Extremity Exam: Positive: Normal pulses Skin Exam: Positive: Nl turgor and temperature Assessment /Plan Problems (1) Rhabdomyolysis Status: Acute Problem Text: Improving progressively Continue IV fluids, NS at 100 mL per hour Today. CPK levels are still pending If the levels are within acceptable range. She can be discharged to [facility] Spoke with patient's sister Nikki and agreed with the discharge plan (2) Encephalopathy, toxic Status: Acute Problem Text: Most likely secondary to Cipro interaction/drug reaction Patient is clinically improved. She is back to her baseline until status , She probably will be discharged back to [facility] was the repeat CPK are within normal range (3) Intellectual disability Status: Chronic Problem Text: Stable (4) Hypothyroidism Status: Chronic Problem Text: Continue home meds (5) Hyperlipemia Status: Chronic Problem Text: Continue home meds (6) Schizophrenia Status: Chronic Problem Text: Complete psych consult is still pending and EMR Continue home meds (7) Adverse drug effect Status: Acute Problem Text: Most likely secondary to Cipro PCP was called from ED by Dr. Russell and informed regarding patient's recurrent interaction and altered mental status secondary to Cipro Slowly improving. Continue clinical monitoring Plan/VTE VTE Prophylaxis Ordered?: Yes VS, I&O, 24H, Fishbone Vital Signs/I&O Vital Signs Date Time Temp Pulse Resp B/P (MAP) Pulse Ox O2 Delivery O2 Flow Rate FiO2 09/28/19 06:00 99.2 79 16 139/71 (93) 96 Room Air I&O- Last 24 Hours up to 6 AM 09/28/19 06:00 Intake Total 1700 ml Output Total 450 ml Balance 1250 ml DILIP NOBLE MD September 28, 2019 10:29
[2019-09-28 11:27] LABS: HEMATOCRIT 35.4 % (36.0-47.0); HEMOGLOBIN 11.3 g/dl (12.0-15.5); MEAN CORPUSCULAR HEMOGLOBIN 31.1 pg (27.0-33.0); MEAN CORPUSCULAR HGB CONC 31.9 g/dl (32.0-36.5); MEAN CORPUSCULAR VOLUME 97.5 fl (80.0-96.0); PLATELET COUNT, AUTOMATED 275 10^3/uL (150-450); RED BLOOD COUNT 3.63 10^6/uL (4.00-5.40); WHITE BLOOD COUNT 7.8 10^3/uL (4.0-10.0)
[2019-09-28 11:59] LABS: BLOOD UREA NITROGEN 10 MG/DL (7-18); CALCIUM LEVEL 8.2 MG/DL (8.8-10.2); CARBON DIOXIDE LEVEL 27 MEQ/L (21-32); CHLORIDE LEVEL 110 MEQ/L (98-107); CPK CREATINE PHOSPHOKINASE 860 U/L (26-192); CREATININE FOR GFR 0.73 MG/DL (0.55-1.30); GLOMERULAR FILTRATION RATE > 60.0 (>45); GLUCOSE, FASTING 174 MG/DL (70-100); POTASSIUM SERUM 3.5 MEQ/L (3.5-5.1); SODIUM LEVEL 145 MEQ/L (136-145)
[2019-09-28 14:00] VITALS: BP 157/74
[2019-09-28] MEDS: ENOXAPARIN 40MG/0.4ML SYRINGE (J1650 PER 10MG) SC SCH (20:55)
[2019-09-28] MEDS: LORazepam 2 MG/ML VIAL (J2060) IV PRN (20:55)
[2019-09-28 22:00] VITALS: BP 152/78
[2019-09-29 06:00] VITALS: BP 147/69
[2019-09-29 06:12] LABS: BASO # 0.1 10^3/uL (0.0-0.2); BASO % 1.1 % (0.0-1.0); EOS # 0.5 10^3/uL (0.0-0.5); EOS % 6.9 % (0.0-3.0); HEMATOCRIT 33.5 % (36.0-47.0); HEMOGLOBIN 10.5 g/dl (12.0-15.5); LYMPH # 2.5 10^3/uL (1.5-5.0); LYMPH % 31.5 % (24.0-44.0); MEAN CORPUSCULAR HEMOGLOBIN 30.7 pg (27.0-33.0); MEAN CORPUSCULAR HGB CONC 31.3 g/dl (32.0-36.5); MONO # 0.6 10^3/uL (0.0-0.8); MONO % 8.2 % (0.0-5.0); NEUTROPHILS # 4.1 10^3/uL (1.5-8.5); PLATELET COUNT, AUTOMATED 232 10^3/uL (150-450); RED BLOOD COUNT 3.42 10^6/uL (4.00-5.40); WHITE BLOOD COUNT 7.8 10^3/uL (4.0-10.0)
[2019-09-29] MEDS: NS 1,000 ML IV SCH (06:23)
[2019-09-29 06:46] LABS: BLOOD UREA NITROGEN 8 MG/DL (7-18); CALCIUM LEVEL 7.6 MG/DL (8.8-10.2); CARBON DIOXIDE LEVEL 25 MEQ/L (21-32); CHLORIDE LEVEL 112 MEQ/L (98-107); CPK CREATINE PHOSPHOKINASE 469 U/L (26-192); CREATININE FOR GFR 0.59 MG/DL (0.55-1.30); GLOMERULAR FILTRATION RATE > 60.0 (>45); GLUCOSE, FASTING 86 MG/DL (70-100); POTASSIUM SERUM 3.5 MEQ/L (3.5-5.1); SODIUM LEVEL 144 MEQ/L (136-145)
--- NOTE | 2019-09-29 13:03 | DS.PDOC ---
Discharge Summary General Date of Admission September 26, 2019 at 17:46 Date of Discharge 09/29/19 Discharge Summary PROCEDURES PERFORMED DURING STAY: [None]. ADMITTING DIAGNOSES: 1. [Rhabdomyolysis, but have a changes]. DISCHARGE DIAGNOSES: 1. [Rhabdomyolysis, adverse drug reaction, schizophrenia, behavior changes]. COMPLICATIONS/CHIEF COMPLAINT: Rhabdomyolysis, Schizophrenia. HISTORY OF PRESENT ILLNESS: [This is a 69 years old white female from [facility] was brought into emergency room when [facility] staff noticed to have a behaviour changes. Patient wanted to hurt herself and break everybody else's neck and burn the place down. Note, patient was recently started on Cipro for UTI and checking her old records and speaking with the ED physician. Patient had a similar episode of agitation last time and she was prescribed Cipro and which had resolved after a few days, then I interviewed patient. She is not suicidal or homicidal, but she still wants to burn the placed down. As per patient, she is very anxious. She does not know why. No nausea, vomiting, chest pain or shortness of breath ]. HOSPITAL COURSE: [ Patient was admitted with acute behavior changes, most likely secondary to adverse drug reaction to Cipro Cipro was stopped and patient was started on IV fluids as well as continued on all her medications. Patient was seen by psychiatry and agreed with. There were changed, most likely secondary to antibiotic Cipro Patient slowly and progressively improved. She is at her baseline mental status, not agitated, not suicidal, not homicidal and does not want to hurt anybody All her laboratory work is essentially within normal range. Her toxic encephalopathy has completely resolved. She relates to her baseline mental status and will be discharged back to [facility] today Also she was treated with IV fluids for rhabdomyolysis. Again, that could be most likely secondary to adverse reaction of antibiotics, the patient's his CPKs were monitored and today is 469. No further intervention needed and she can be discharged back today on all her medications and follow with PCP in one week. Note, patient's PCP and pharmacy were informed regarding patient's adverse reaction to Cipro and patient's allergy list has been updated. ]. DISCHARGE MEDICATIONS: Please see below. ALLERGIES: Please see below. PHYSICAL EXAMINATION ON DISCHARGE: VITAL SIGNS: Please see below. GENERAL: [Within normal limits] HEENT: [PERRLA. Extraocular muscles intact] NECK: [Supple] CARDIOVASCULAR EXAMINATION: [S1, S2, regular] RESPIRATORY EXAMINATION: [Clear to A&P] ABDOMINAL EXAMINATION: [, Soft, nontender, bowel sound present] EXTREMITIES: [No clubbing, cyanosis, edema] SKIN: [Normal] NEUROLOGICAL EXAMINATION: [, No focal motor sensory deficit] PSYCHIATRIC EXAMINATION: [Baseline normal] LABORATORY DATA: Please see below. IMAGING: [Not applicable] PROGNOSIS: [Good] ACTIVITY: [As tolerated]. DIET: [As tolerated] DISCHARGE PLAN: [Discharged back to [facility]] DISPOSITION: . Back to [facility] DISCHARGE INSTRUCTIONS: 1. [As per discharge instructions]. ITEMS TO FOLLOWUP ON ON OUTPATIENT: 1. [Follow with PCP in one week]. DISCHARGE CONDITION: [Stable]. TIME SPENT ON DISCHARGE: 36 minutes. Vital Signs/I&Os Vital Signs Date Time Temp Pulse Resp B/P (MAP) Pulse Ox O2 Delivery O2 Flow Rate FiO2 09/29/19 06:00 97.1 91 18 147/69 (95) 98 Room Air I&O- Last 24 Hours up to 6 AM 09/29/19 06:00 Intake Total 2945 ml Output Total 1400 ml Balance 1545 ml Laboratory Data Labs 24H Laboratory Tests 2 09/29/19 05:49: Immature Granulocyte % (Auto) 0.3, Neutrophils (%) (Auto) 52.0, Lymphocytes (%) (Auto) 31.5, Monocytes (%) (Auto) 8.2H, Eosinophils (%) (Auto) 6.9H, Basophils (%) (Auto) 1.1H, Neutrophils # (Auto) 4.1, Lymphocytes # (Auto) 2.5, Monocytes # (Auto) 0.6, Eosinophils # (Auto) 0.5, Basophils # (Auto) 0.1, Nucleated Red Blood Cells % (auto) 0.0, Anion Gap 7L, Glomerular Filtration Rate > 60.0, Calcium Level 7.6L, Total Creatine Kinase 469H CBC/BMP Laboratory Tests 09/29/19 05:49 Discharge Medications Scheduled Ascorbic Acid (Ascorbic Acid) 500 Mg Tablet, 500 MG PO DAILY, (Reported) Aspirin (Aspir 81) 81 Mg Tablet.dr, 81 MG PO DAILY, (Reported) Atorvastatin Calcium (Lipitor) 10 Mg Tablet, 10 MG PO DAILY, (Reported) Buspirone HCl (Buspirone HCl) 15 Mg Tablet, 15 MG PO BID, (Reported) 25MG TOTAL BID Buspirone HCl (Buspirone HCl) 10 Mg Tablet, 10 MG PO BID, (Reported) 25MG TOTAL BID Calcium Carbonate/Vitamin D3 (Calcium 600-Vit D3 400 Tablet) 1 Each Tablet, 1 TAB PO DAILY, (Reported) Cholecalciferol (Vitamin D3) (Vitamin D3) 1,000 Unit Tablet, 5,000 UNITS PO DAILY, (Reported) Docusate Sodium (Colace) 100 Mg Capsule, 100 MG PO BID, (Reported) Estradiol (Estrace) 42.5 Gm Cream.appl, 0.5 GRAM PV QWEEK, (Reported) SUNDAYS QHS Fluticasone Propionate (Fluticasone Propionate) 16 Gm [place].susp, 2 SPRAY NARES DAILY, (Reported) Levothyroxine Sodium (Levoxyl) 50 Mcg Tablet, 50 MCG PO QAM, (Reported) Multivitamin (Multivitamins) 1 Each Capsule, 1 CAP PO DAILY, (Reported) Oxybutynin Chloride (Ditropan Xl) 10 Mg Tab.er.24, 10 MG PO DAILY, (Reported) Quetiapine Fumarate (Quetiapine Fumarate) 100 Mg Tablet, 100 MG PO DAILY, (Reported) Quetiapine Fumarate (Seroquel) 300 Mg Tablet, 300 MG PO QHS, (Reported) Allergies Coded Allergies: SEASONAL ALLERGIES (Verified Allergy, Unknown, 10/31/17) ziprasidone (Verified Allergy, Unknown, 02/06/19) ciprofloxacin (Verified Adverse Reaction, Severe, toxic encephalopathy, 09/27/19) DILIP NOBLE MD September 29, 2019 13:03
[2019-09-29 14:00] VITALS: BP 140/60
== END 2019-09-29 14:51 | disposition home or self-care (01) | DRG 557 ==
LOC: M ED 09:52 → M ED INP 17:46 → ENRESERV 21:15 → M MSPAV 22:10
PROVIDERS: ADMIT Internal Medicine; ATTEND Internal Medicine
DX: M62.82 Rhabdomyolysis (principal); G92 Toxic encephalopathy; F20.5 Residual schizophrenia; T36.8X5A Adverse effect of other systemic antibiotics, initial encounter; J30.2 Other seasonal allergic rhinitis; F79 Unspecified intellectual disabilities; N32.81 Overactive bladder; E03.9 Hypothyroidism, unspecified; E78.5 Hyperlipidemia, unspecified; E55.9 Vitamin D deficiency, unspecified; E61.1 Iron deficiency; Z86.73 Personal history of transient ischemic attack (TIA), and cerebral infarction without residual deficits; Z88.8 Allergy status to other drugs, medicaments and biological substances; Z79.82 Long term (current) use of aspirin; Z79.899 Other long term (current) drug therapy

== ENCOUNTER 2019-10-09 16:46 | Emergency (ER) | payer MEDICARE, MEDICAID ==
[~2019-10-09] VITALS: Ht 149.9 cm; Wt 68.7 kg
[~2019-10-09 16:46] MED LIST changes: +CIPR500T3 PO; +ESTR1CRE PV; +VITAD1000T PO
[2019-10-09 18:50] LABS: BASO # 0.1 10^3/uL (0.0-0.2); BASO % 1.6 % (0.0-1.0); EOS # 0.6 10^3/uL (0.0-0.5); EOS % 7.4 % (0.0-3.0); HEMATOCRIT 37.2 % (36.0-47.0); HEMOGLOBIN 12.2 g/dl (12.0-15.5); LYMPH % 25.2 % (24.0-44.0); MEAN CORPUSCULAR HEMOGLOBIN 32.1 pg (27.0-33.0); MEAN CORPUSCULAR HGB CONC 32.8 g/dl (32.0-36.5); MEAN CORPUSCULAR VOLUME 97.9 fl (80.0-96.0); MONO # 0.8 10^3/uL (0.0-0.8); MONO % 9.7 % (0.0-5.0); NEUTROPHILS # 4.5 10^3/uL (1.5-8.5); PLATELET COUNT, AUTOMATED 335 10^3/uL (150-450)
[2019-10-09 18:52] LABS: BLOOD UREA NITROGEN 16 MG/DL (7-18); CARBON DIOXIDE LEVEL 28 MEQ/L (21-32); CHLORIDE LEVEL 105 MEQ/L (98-107); CPK CREATINE PHOSPHOKINASE 179 U/L (26-192); CREATININE FOR GFR 0.96 MG/DL (0.55-1.30); GLOMERULAR FILTRATION RATE > 60.0 (>45); GLUCOSE, FASTING 95 MG/DL (70-100); SODIUM LEVEL 137 MEQ/L (136-145)
[2019-10-09 19:36] VITALS: BP 170/82
== END 2019-10-09 19:42 | disposition home or self-care (01) ==
LOC: M ED 16:46
DX: Z00.00 Encounter for general adult medical examination without abnormal findings (principal); E78.5 Hyperlipidemia, unspecified; F20.9 Schizophrenia, unspecified; E03.9 Hypothyroidism, unspecified; F70 Mild intellectual disabilities; M81.0 Age-related osteoporosis without current pathological fracture; Z79.899 Other long term (current) drug therapy; Z79.890 Hormone replacement therapy; Z79.82 Long term (current) use of aspirin; Z88.1 Allergy status to other antibiotic agents; Z88.8 Allergy status to other drugs, medicaments and biological substances

== ENCOUNTER 2020-01-18 16:01 | Emergency (ER) | payer MEDICARE, MEDICAID ==
[~2020-01-18] VITALS: Ht 149.9 cm; Wt 66.5 kg
[~2020-01-18 16:01] MED LIST changes: -ASPI81TA85 PO; +ASPI81TA86 PO; +D31000TA2 PO; -VITAD1000T PO
[2020-01-18] MEDS ORDERED: HYDR-643 (16:31)
[2020-01-18] MEDS ORDERED: CEPH500C (16:31)
[2020-01-18] MEDS ORDERED: ATOR1TAB19 (16:31)
--- NOTE | 2020-01-18 16:49 | REPVR ---
PROCEDURE INFORMATION: Exam: CT Head Without Contrast Exam date and time: 01/18/2020 4:35 PM Age: 69 years old Clinical indication: Altered mental status/memory loss; Confusion or disorientation TECHNIQUE: Imaging protocol: Computed tomography of the head without contrast. Radiation optimization: All CT scans at this facility use at least one of these dose optimization techniques: automated exposure control; mA and/or kV adjustment per patient size (includes targeted exams where dose is matched to clinical indication); or iterative reconstruction. COMPARISON: CT Head without contrast 03/18/2019 11:35 PM FINDINGS: Brain: Chronic right basal ganglia infarct. Mild nonspecific hypodensities of the periventricular and deep subcortical white matter, most likely secondary to chronic small vessel ischemic change. No intracranial hemorrhage or extra-axial fluid collection. No evidence of mass effect or midline shift. Carroll-white matter differentiation is normal. Ventricles: Mild prominence of the ventricles and sulci, most likely attributed to parenchymal volume loss. Bones/joints: No acute osseus lesion or fracture. Sinuses: Unremarkable as visualized. Mastoid air cells: Unremarkable. Soft tissues: Unremarkable. IMPRESSION: 1. No acute intracranial pathology. 2. Other chronic findings, as above. Electronically signed by: Shon Jolly On 01/18/2020 16:48:45 PM
[2020-01-18 17:26] LABS: HEMOGLOBIN 12.4 g/dl (12.0-15.5); MEAN CORPUSCULAR HEMOGLOBIN 31.4 pg (27.0-33.0); MEAN CORPUSCULAR HGB CONC 32.6 g/dl (32.0-36.5); MEAN CORPUSCULAR VOLUME 96.2 fl (80.0-96.0); PLATELET COUNT, AUTOMATED 258 10^3/uL (150-450); RED BLOOD COUNT 3.95 10^6/uL (4.00-5.40); WHITE BLOOD COUNT 11.1 10^3/uL (4.0-10.0)
[2020-01-18 17:44] LABS: ALBUMIN 3.9 GM/DL (3.2-5.2); ALT/SGPT 24 U/L (12-78); BILIRUBIN,DIRECT < 0.1 MG/DL (0.0-0.2); BILIRUBIN,TOTAL 0.3 MG/DL (0.2-1.0); BLOOD UREA NITROGEN 25 MG/DL (7-18); CALCIUM LEVEL 9.5 MG/DL (8.8-10.2); CARBON DIOXIDE LEVEL 21 MEQ/L (21-32); CHLORIDE LEVEL 111 MEQ/L (98-107); CK-MB VALUE MASS 1.8 NG/ML (<3.6); CPK CREATINE PHOSPHOKINASE 229 U/L (26-192); CREATININE FOR GFR 1.18 MG/DL (0.55-1.30); ETHYL ALCOHOL (ETHANOL) < 0.003 % (0.000-0.010); GLOMERULAR FILTRATION RATE 48.6 (>45); GLUCOSE, FASTING 93 MG/DL (70-100); MB/CK RELATIVE INDEX 0.79 (< OR =4); POTASSIUM SERUM 4.5 MEQ/L (3.5-5.1); SALICYLATE LEVEL < 1.7 MG/DL (5.0-30.0); SODIUM LEVEL 142 MEQ/L (136-145); TOTAL PROTEIN 7.3 GM/DL (6.4-8.2); TROPONIN I < 0.02 NG/ML (< 0.10)
[2020-01-18 17:47] LABS: ACETAMINOPHEN LEVEL < 2.0 UG/ML (10.0-30.0)
--- NOTE | 2020-01-18 17:52 | REPVR ---
PROCEDURE INFORMATION: Exam: XR Chest, 2 Views Exam date and time: 01/18/2020 4:29 PM Age: 69 years old Clinical indication: Chest pain; Type not specified; Additional info: Altered mental status TECHNIQUE: Imaging protocol: XR of the chest Views: 2 views. COMPARISON: CT Chest with contrast 03/18/2019 4:39 PM FINDINGS: Lungs: No focal areas of consolidation. Pleural space: No pleural effusion or pneumothorax. Heart/Mediastinum: Cardiac and mediastinal silhouettes are unremarkable. Bones/joints: No acute osseus lesion or fracture. IMPRESSION: No acute cardiopulmonary findings. Electronically signed by: Shon Jolly On 01/18/2020 17:52:06 PM
[2020-01-18 18:07] LABS: AMPHETAMINES LEVEL URINE NEGATIVE (NEGATIVE); BARBITURATES URINE NEGATIVE (NEGATIVE); BENZODIAZEPINES URINE NEGATIVE (NEGATIVE); CANNABINOIDS URINE NEGATIVE (NEGATIVE); COCAINE METABOLITE URINE NEGATIVE (NEGATIVE); METHADONE URINE NEGATIVE (NEGATIVE); OPIATES URINE NEGATIVE (NEGATIVE); PHENCYCLIDINE URINE NEGATIVE (NEGATIVE)
[2020-01-18 20:13] VITALS: BP 154/88
--- NOTE | 2020-01-29 21:26 | ECGEPIP ---
[facility] - ED Test Date: 2020-01-18 Pat Name: CAMERON MONTGOMERY Department: Room: - Gender: Female Authorization Representative: neymar : 1950 Requested By: DK Delong Order Number: [id number] Reading MD: Diego Hammonds Measurements Intervals [place] Rate: 95 P: 62 AL: 160 QRS: 6 QRSD: 60 T: 66 QT: 323 QTc: 407 Interpretive Statements SINUS RHYTHM NONSPECIFIC ST T CHANGE NO PRIOR-DOWNTIME SEE SCANNED DOWNTIME REPORT
== END 2020-01-18 20:15 | disposition home or self-care (01) ==
LOC: M ED 16:01
DX: N39.0 Urinary tract infection, site not specified (principal); E07.9 Disorder of thyroid, unspecified; E55.9 Vitamin D deficiency, unspecified; E78.9 Disorder of lipoprotein metabolism, unspecified; F79 Unspecified intellectual disabilities; Z95.1 Presence of aortocoronary bypass graft; Z79.899 Other long term (current) drug therapy; Z79.890 Hormone replacement therapy; Z79.82 Long term (current) use of aspirin; Z88.1 Allergy status to other antibiotic agents; Z88.8 Allergy status to other drugs, medicaments and biological substances; J30.89 Other allergic rhinitis
CPT/HCPCS: 36415; 70450; 71046; 80048; 80076; 80307; 81001; 82550; 82553; 84443; 84484; 85027; 87086; 93005; 99284; G0480

== ENCOUNTER → 2020-02-19 | Outpatient (CLI) | payer MEDICARE, MEDICAID ==
[~2020-02-19] MED LIST changes: +ATOR1TAB19; +CEPH500C; +HYDR-643; +ISOVUE-370 76% 100ML VIAL As Ordered ONE
--- NOTE | 2020-02-25 12:00 | REP ---
CT ABDOMEN AND PELVIS WITHOUT AND WITH INTRAVENOUS (IV) CONTRAST: WITHOUT ORAL CONTRAST; CT UROGRAPHY HISTORY: Urinary tract infections. Microscopic hematuria. COMPARISON: 03/18/2019. CT CONTRAST DOSE: 100 ml of intravenous Isovue-370. 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 The lung bases are clear on axial CT images. The liver and the spleen are normal in size and homogeneous in texture. No focal hepatic lesion. No abnormality is noted in the gallbladder. The pancreas is unremarkable. Normal adrenal glands are seen. The kidneys enhance symmetrically. No renal mass, hydronephrosis, or calculus is appreciated. Delayed postcontrast acquisition shows no filling defect in the collecting system on either side. Ureters describe a normal course to the urinary bladder. No filling defect is seen in the bladder. No evidence of enhancing bladder mass lesion. No uterine or adnexal pathology is seen. No pelvic mass or adenopathy is observed. Small and large intestinal bowel loops are unremarkable. The appendix is normal in appearance. No abdominal wall defect is seen. No bony destructive lesion. IMPRESSION: No urinary tract abnormality. No acute abdominal or pelvic abnormality seen. MTDD
== END ==
LOC: M RAD 07:58
PROVIDERS: ATTEND Nurse Practitioner Family
DX: R31.29 Other microscopic hematuria (principal)
CPT/HCPCS: 74178; Q9967

== ENCOUNTER → 2020-05-08 | Outpatient (REF) | payer MEDICARE, MEDICAID ==
[~2020-05-08] MED LIST changes: +ASPI-161 PO; +ATOR1TAB19 PO; +AUGM875T28 PO; +CITA10TA5 PO; +D-50TAB PO; +DEXA2TA PO; +HYDR-643 PO; -ISOVUE-370 76% 100ML VIAL As Ordered ONE; +SYNT75TA PO
== END ==
LOC: M LAB REF 13:01
PROVIDERS: ATTEND Physician Assistant
DX: R30.0 Dysuria (principal)

== ENCOUNTER 2020-05-12 20:27 | Observation (INO) | payer MEDICARE, MEDICAID ==
[~2020-05-12] VITALS: Ht 149.9 cm; Wt 63.5 kg
[~2020-05-12 20:27] MED LIST changes: -ASPI-161 PO; -ATOR1TAB19 PO; -AUGM875T28 PO; -CITA10TA5 PO; -D-50TAB PO; -DEXA2TA PO; -HYDR-643 PO; -SYNT75TA PO
[2020-05-12] MEDS ORDERED: SYNT75TA PO (20:52)
[2020-05-12 21:51] LABS: BASO % 0.3 % (0.0-1.0); EOS # 0.3 10^3/uL (0.0-0.5); EOS % 4.1 % (0.0-3.0); HEMATOCRIT 31.2 % (36.0-47.0); HEMOGLOBIN 9.8 g/dl (12.0-15.5); LYMPH % 13.8 % (24.0-44.0); MEAN CORPUSCULAR HEMOGLOBIN 29.5 pg (27.0-33.0); MEAN CORPUSCULAR HGB CONC 31.4 g/dl (32.0-36.5); MONO # 0.8 10^3/uL (0.0-0.8); MONO % 10.4 % (0.0-5.0); NEUTROPHILS # 5.2 10^3/uL (1.5-8.5); NEUTROPHILS % 70.9 % (36.0-66.0); PLATELET COUNT, AUTOMATED 332 10^3/uL (150-450); RED BLOOD COUNT 3.32 10^6/uL (4.00-5.40); WHITE BLOOD COUNT 7.4 10^3/uL (4.0-10.0)
[2020-05-12 22:20] LABS: ALBUMIN 2.6 GM/DL (3.2-5.2); ALT/SGPT 30 U/L (12-78); BILIRUBIN,DIRECT < 0.1 MG/DL (0.0-0.2); BILIRUBIN,TOTAL 0.3 MG/DL (0.2-1.0); BLOOD UREA NITROGEN 19 MG/DL (7-18); CALCIUM LEVEL 8.7 MG/DL (8.8-10.2); CARBON DIOXIDE LEVEL 29 MEQ/L (21-32); CHLORIDE LEVEL 109 MEQ/L (98-107); CK-MB VALUE MASS < 1.0 NG/ML (<3.6); CPK CREATINE PHOSPHOKINASE 139 U/L (26-192); CREATININE FOR GFR 0.73 MG/DL (0.55-1.30); GLOMERULAR FILTRATION RATE > 60.0 (>45); GLUCOSE, FASTING 127 MG/DL (70-100); MB/CK RELATIVE INDEX 0.72 (< OR =4); POTASSIUM SERUM 3.4 MEQ/L (3.5-5.1); SODIUM LEVEL 145 MEQ/L (136-145); TOTAL PROTEIN 6.1 GM/DL (6.4-8.2); TROPONIN I < 0.02 NG/ML (< 0.10)
--- NOTE | 2020-05-12 22:53 | REPVR ---
PROCEDURE INFORMATION: Exam: CT Head Without Contrast Exam date and time: 05/12/2020 10:32 PM Age: 70 years old Clinical indication: Altered mental status/memory loss; Confusion or disorientation; Additional info: AMS TECHNIQUE: Imaging protocol: Computed tomography of the head without contrast. Radiation optimization: All CT scans at this facility use at least one of these dose optimization techniques: automated exposure control; mA and/or kV adjustment per patient size (includes targeted exams where dose is matched to clinical indication); or iterative reconstruction. COMPARISON: CT Head without contrast 01/18/2020 4:31 PM FINDINGS: Brain: There is no acute cortical infarction, intracranial hemorrhage or mass. Prior infarction in the anterior right lentiform nucleus and caudate head is again noted with ex vacuo dilatation of the frontal horn of the right lateral ventricle. Cerebral ventricles: No significant ventriculomegaly. Bones/joints: Unremarkable. No acute fracture. Paranasal sinuses: There is minimal mucoperiosteal thickening in the maxillary antra.The remainder of the paranasal sinuses appear clear. Mastoid air cells: The middle ear cavities and mastoid air cells are clear. Soft tissues: Unremarkable. IMPRESSION: No acute intracranial findings. Electronically signed by: Rola Figueroa On 05/12/2020 22:54:00 PM
[2020-05-13] VITALS (8 sets, daily range): BP systolic 144–186; BP diastolic 75–86; O2SAT 96–97
--- NOTE | 2020-05-13 00:32 | REPVR ---
PROCEDURE INFORMATION: Exam: CT Abdomen And Pelvis Without Contrast Exam date and time: 05/12/2020 11:42 PM Age: 70 years old Clinical indication: Abdominal pain; Generalized; Additional info: AMS, hematuria TECHNIQUE: Imaging protocol: Computed tomography of the abdomen and pelvis without contrast. Radiation optimization: All CT scans at this facility use at least one of these dose optimization techniques: automated exposure control; mA and/or kV adjustment per patient size (includes targeted exams where dose is matched to clinical indication); or iterative reconstruction. COMPARISON: CT ABD PELVIS W/O FOL BY WIT 02/19/2020 8:22 AM FINDINGS: Lungs: There are ground-glass opacities in the right middle lobe, right lower lobe, lingula, and left lower lobe, which have developed since the prior CT abdomen and pelvis on 02/19/2020. Heart: There is a small pericardial effusion that measures water density. No cardiomegaly. Liver: Unremarkable. No liver lesion is identified. The contour of the liver is smooth. No hepatomegaly is noted. Gallbladder and bile ducts: No calcified gallstones are noted. No gallbladder wall thickening, pericholecystic fluid, or pericholecystic inflammatory changes are identified. No dilation of the bile ducts is noted. No calcified stones are seen in the common bile duct. Pancreas: Unremarkable. No dilation of the main pancreatic duct is noted. There is no inflammatory fat stranding around the pancreas to suggest acute pancreatitis. Spleen: Unremarkable. No splenomegaly is noted. Adrenal glands: Normal. No adrenal mass is noted. Kidneys and ureters: The kidneys are unremarkable. No renal lesion is noted. Stomach and bowel: The stomach and small bowel are unremarkable. There is no evidence for a bowel obstruction, diverticulosis, diverticulitis, colitis, perforated viscus, pneumatosis intestinalis, intussusception, or volvulus. Appendix: There is intraluminal high density within the appendix, which may represent high density ingested material or an appendicolith. The appendix is not dilated and there is no inflammatory fat stranding or fluid around the appendix to indicate appendicitis. Intraperitoneal space: No free air. No ascites. No asbcess. Retroperitoneal space: No fluid collection. No mass. Vasculature: The abdominal aorta is normal in caliber. There are mild atherosclerotic calcifications. Lymph nodes: No enlarged lymph nodes. Urinary bladder: The distended urinary bladder is normal in appearance. No stones or masses are seen in the bladder. Reproductive: The uterus is anterverted and unremarkable. The ovaries are unremarkable. Bones/joints: There is no fracture or dislocation. No suspicious osteolytic or osteoblastic lesion. There are degenerative changes involving the lumbar spine. Soft tissues: Unremarkable. No hernia. No soft tissue fluid collection. IMPRESSION: 1. No acute findings in the abdomen or pelvis. 2. No stones in the kidneys, ureters, or urinary bladder. No hydronephrosis or hydroureter. 3. Ground-glass opacities in the right middle lobe, right lower lobe, lingula, and left lower lobe, which have developed since the prior CT abdomen and pelvis on 02/19/2020. Imaging features can be seen with COVID-19 pneumonia, though are nonspecific and can occur with a variety of infectious and noninfectious processes. (Reference: Richard) REFERENCES: Richard Agustin, et al., Radiological Society of [place] Expert Consensus Statement on Reporting Chest CT Findings Related to COVID-19. Endorsed by the Society of Thoracic Radiology, the [place] [employer], and RSNA. Published August 08, 2019. Electronically signed by: Bora Nichole On 05/13/2020 00:32:53 AM
--- NOTE | 2020-05-13 02:06 | REPVR ---
PROCEDURE INFORMATION: Exam: XR Chest, 1 View Exam date and time: 05/13/2020 1:18 AM Age: 70 years old Clinical indication: AMS TECHNIQUE: Imaging protocol: XR of the chest Views: 1 view. COMPARISON: 1. CR Chest, 2 view PA, Lat 01/18/2020 5:[address] ABD PELVIS W/O CONTRAST 05/12/2020 11:54:56 PM FINDINGS: Lungs: There are airspace opacities in a predominantly peripheral distribution in the right upper lobe, right middle lobe, right lower lobe, left upper lobe, and left lower lobe that have developed since the prior chest x-ray on 01/18/2020. Pleural space: Unremarkable. No pleural effusion or pneumothorax is identified. Heart/Mediastinum: Unremarkable. No cardiomegaly. Vasculature: There are atherosclerotic calcifications of the aortic arch. Bones/joints: There is a slight levoscoliosis of the thoracic spine. IMPRESSION: Airspace opacities in a predominantly peripheral distribution in the right upper lobe, right middle lobe, right lower lobe, left upper lobe, and left lower lobe that have developed since the prior chest x-ray on 01/18/2020. As discussed in the CT abdomen and pelvis report on 05/12/2020, imaging features can be seen with COVID-19 pneumonia, though are nonspecific and can occur with a variety of infectious and noninfectious processes. Electronically signed by: Bora Nichole On 05/13/2020 02:05:53 AM
[2020-05-13] MEDS ORDERED: MOM 30ML SUSPENSION UDC PO PRN (02:30)
[2020-05-13] MEDS ORDERED: MAALOX 30 ML SUSP *UDC PO PRN (02:30)
[2020-05-13] MEDS ORDERED: ACETAMINOPHEN TAB 650MG DOSE (2X325MG) PO PRN (02:30)
--- NOTE | 2020-05-13 02:33 | HPEPDOC ---
[facility] Medical History & Physical Date of Admission May 13, 2020 Date of Service: May 13, 2020 Primary Care Physician: Chasity Parker [facility] Attending Physician: ARETHA HOFF MD History and Physical TIME OF SERVICE: 245am CHIEF COMPLAINT: agitation HISTORY OF PRESENT ILLNESS: Per ER intake sheet, this 70 yr old [facility] resident was brought by staff to the ER bc of urinary incontinence and c/o dysuria and abdominal pain. added that the patient was confused agitated and hallucinating. At the time of my evaluation she confirmed that she had abdominal pain but didnt have any other c/o. She was aware that we were at the hospital, but some of the content of her speech was not congruent with the conversation. REVIEW OF SYSTEMS: see HPI / incomplete bc the patient was confused PAST MEDICAL/ SURGICAL HISTORY: Schizophrenia Developmental disability Hypothyroidism DLP TAMARA TIA Vitamin D deficiency Tubal ligation SOCIAL HISTORY: Lives at [facility] FAMILY HISTORY: Unobtainable ALLERGIES: Please see below. HOME MEDICATIONS: Please see below. PHYSICAL EXAMINATION: VITAL SIGNS: Please see below. GENERAL APPEARANCE: doesnt appear toxic / NAD HEENT: EOMI / no conjunctival injection CARDIOVASCULAR: RRR/NMRG/ radial pulses intact LUNGS: coughing / not using accessory muscles /able to speak full sentence w/o stopping to take a breath / lungs CTAB on RA / dullness to percussion at lung bases posteriorly ABDOMEN: flat / soft & NT w palpation MUSCULOSKELETAL: DILIP x 4 NEUROLOGICAL: speech not dysarthria PSYCHIATRIC: alert and oriented to person and place / able to answer simple questions LABORATORY DATA: IMAGING: CT Head IMPRESSION: No acute intracranial findings. CT abd/pelvis IMPRESSION: 1. No acute findings in the abdomen or pelvis. 2. No stones in the kidneys, ureters, or urinary bladder. No hydronephrosis or hydroureter. 3. Ground-glass opacities in the right middle lobe, right lower lobe, lingula, and left lower lobe, which have developed since the prior CT abdomen and pelvis on 02/19/2020. maging features can be seen with COVID-19 pneumonia, though are nonspecific and can occur with a variety of infectious and noninfectious proces ses. (Reference: Ramos) Chest xray IMPRESSION: Airspace opacities in a predominantly peripheral distribution in the right upper lobe, right middle lobe, right lower lobe, left upper lobe, and left lower lobe that have developed since the prior chest x-ray on 01/18/2020. As discussed in the CT abdomen and pelvis report on 05/12/2020, imaging features can be seen with COVID-19 pneumonia, though are nonspecific and can occur with a variety of infectious and noninfectious processes. MICROBIOLOGY: COVID 19 + ASSESSMENT: is a 70 yr old w a hx of Schizophrenia, Developmental disability, Hypothyroidism, DLP, TAMARA, & TIA who was brought in for evaluation of abd pain, dysuria, confusion & hallucinations and was found to have COVID 19 PNA. PLAN: 1 Metabolic Encephalopathy Likely 2/2 infection It is difficult to determine what her baseline is w/o [facility] staff at the bedside Plan: admit to [facility] floor / treat infection 2.COVID 19 PNA Her main c/o is abdominal pain Her qCSI score is 0 = doesnt meet criteria for admission and her CURB 65 score is 2 points = in pt or out pt tx is appropriate She doesnt have hypoxia on the ABG therefore she is not a candidate for remdesivir or steroids Plan: continuous pulse ox / supplemental O2 / contact & air borne precautions / in 12 H f/u repeat plts (if low indicates bad prognosis), CRP (if high indicates bad prognosis), troponins, INR, BMP, fibrinogen, INR, D-dimer, PT, PTT (if patient has DIC indicates bad prognosis), ferritin, LDH, procalcitonin (if elevated will help rule out bacterial PNA) / Levaquin / will not order strep pne umo, legionella, mycoplasma PNA and or blood cx bc she doesnt have SIRS 3. Schizophrenia Plan: quetiapine 4. Hypothyroidism Plan: Levothyroxine 5. DLP Plan: 6.TIA Plan: ASA and statin 7. Vitamin D deficiency Plan: Calcium Carbonate/Vitamin D3 DVT Px w lovenox and ASA Dispo: possibly back to [facility] today or tomorrow Vital Signs Vital Signs Date Time Temp Pulse Resp B/P (MAP) Pulse Ox O2 Delivery O2 Flow Rate FiO2 05/13/20 00:16 98 20 96 Room Air 05/13/20 00:06 189/85 (119) 05/12/20 20:28 98.3 Laboratory Data Labs 24H Laboratory Tests 2 05/12/20 21:35: Immature Granulocyte % (Auto) 0.5, Neutrophils (%) (Auto) 70.9H, Lymphocytes (%) (Auto) 13.8L, Monocytes (%) (Auto) 10.4H, Eosinophils (%) (Auto) 4.1H, Basophils (%) (Auto) 0.3, Neutrophils # (Auto) 5.2, Lymphocytes # (Auto) 1.0L, Monocytes # (Auto) 0.8, Eosinophils # (Auto) 0.3, Basophils # (Auto) 0.0, Nucleated Red Blood Cells % (auto) 0.0, Anion Gap 7L, Glomerular Filtration Rate > 60.0, Calcium Level 8.7L, Total Bilirubin 0.3, Direct Bilirubin < 0.1, Aspartate Amino Transf (AST/SGOT) 37, Alanine Aminotransferase (ALT/SGPT) 30, Alkaline Phosphatase 79, Total Creatine Kinase 139, Creatine Kinase MB < 1.0, Creatine Kinase MB Relative Index 0.72, Troponin I < 0.02, Total Protein 6.1L, Albumin 2.6L, Albumin/Globulin Ratio 0.7L, Thyroid Stimulating Hormone (TSH) 1.950 05/12/20 23:22: Urine Color YELLOW, Urine Appearance CLEAR, Urine pH 7.0, Urine Specific [place] 1.015, Urine Protein NEGATIVE, Urine Glucose (UA) NEGATIVE, Urine Ketones NEGATIVE, Urine Blood NEGATIVE, Urine Nitrite NEGATIVE, Urine Bilirubin NEGATIVE, Urine Urobilinogen 2.0H, Urine Leukocyte Esterase NEGATIVE, Urine WBC (Auto) 0, Urine RBC (Auto) 13H, Urine Hyaline Casts (Auto) 0, Urine Bacteria (Auto) NEGATIVE, Urine Squamous Epithelial Cells 0, Urine Mucus (Auto) SMALL, Urine Sperm (Auto) CBC/BMP Laboratory Tests 05/12/20 21:35 Microbiology Microbiology 05/13/20 Respiratory Virus Panel (PCR) (JL) - Final, Complete SARS-CoV-2 (COVID 19) Home Medications Scheduled Ascorbic Acid (Ascorbic Acid) 500 Mg Tablet, 500 MG PO DAILY Aspirin (Aspirin EC) 81 Mg Tablet.dr, 81 MG PO QHS Atorvastatin Calcium (Atorvastatin Calcium) 10 Mg Tablet, 10 MG PO QHS Buspirone HCl (Buspirone HCl) 15 Mg Tablet, 30 MG PO BID Calcium Carbonate/Vitamin D3 (Calcium 600-Vit D3 400 Tablet) 1 Each Tablet, 1 TAB PO QHS Cholecalciferol (Vitamin D3) (Vitamin D3) 125 Mcg Tablet, 125 MCG PO DAILY Citalopram Hydrobromide (Citalopram HBr) 10 Mg Tablet, 10 MG PO QHS Docusate Sodium (Colace) 100 Mg Capsule, 100 MG PO BID Estradiol (Estrace) 42.5 Gm Cream.appl, 0.5 GRAM PV QWEEK MONDAYS AND FRIDAYS AT QHS Hydroxyzine HCl (Hydroxyzine HCl) 10 Mg Tablet, 10 MG PO BID MORNING, 1600 Levothyroxine Sodium (Synthroid) 75 Mcg Tablet, 75 MCG PO DAILY Multivitamins (Thera M Plus Tablet) 1 Each Tablet, 1 TAB PO DAILY Oxybutynin Chloride (Ditropan Xl) 10 Mg Tab.er.24, 10 MG PO DAILY Quetiapine Fumarate (Quetiapine Fumarate) 100 Mg Tablet, 100 MG PO DAILY Quetiapine Fumarate (Seroquel) 300 Mg Tablet, 300 MG PO QHS Allergies Coded Allergies: SEASONAL ALLERGIES (Verified Allergy, Unknown, 10/31/17) ziprasidone (Verified Allergy, Unknown, 02/06/19) ciprofloxacin (Verified Adverse Reaction, Severe, toxic encephalopathy, 09/27/19) A-FIB/CHADSVASC A-FIB History Current/History of A-Fib/PAF?: No Current PO Anticoag Therapy: No ARETHA HOFF MD May 13, 2020 02:33
[2020-05-13 02:44] LABS: INR 0.93; PROTHROMBIN TIME 12.7 SECONDS (12.5-14.3)
[2020-05-13 02:46] LABS: D-DIMER QUANT 2423.38 ng/ml (<500)
[2020-05-13] MEDS ORDERED: D-50TAB PO (02:51)
[2020-05-13] MEDS ORDERED: BUSP15TA47 PO (02:51)
[2020-05-13] MEDS ORDERED: SYNT75TA PO (02:51)
[2020-05-13] MEDS ORDERED: HYDR-643 PO (02:51)
[2020-05-13] MEDS ORDERED: VITMTA PO (02:51)
[2020-05-13] MEDS ORDERED: ATOR1TAB19 PO (02:51)
[2020-05-13] MEDS ORDERED: CITA10TA5 PO (02:51)
[2020-05-13] MEDS ORDERED: ASPI-161 PO (02:51)
[2020-05-13 02:59] LABS: C REACTIVE PROTEIN QUANTITATIV 9.57 MG/DL (0.00-0.30); FERRITIN 225 NG/ML (8-252); LDH LACTATE DEHYDROGENASE 271 U/L (84-246); NT-PRO BNP 324 PG/ML (<125); TRIGLYCERIDES LEVEL 60 MG/DL (<150)
[2020-05-13 03:18] LABS: ERYTHROCYTE SEDIMENTATION RATE 74 mm/hr (0-30)
[2020-05-13] MEDS ORDERED: oxyBUTYnin *DITROPAN XL* 5 MG TABCR PO SCH (06:00)
[2020-05-13] MEDS ORDERED: LEVOTHYROXINE 75MCG TABLET (0.075MG) PO SCH (06:00)
[2020-05-13] MEDS ORDERED: LevoFLOXacin 500 MG TABLET PO SCH (06:00)
--- NOTE | 2020-05-13 07:06 | ECGEPIP ---
[facility] - ED Test Date: 2020-05-12 Pat Name: CAMERON MONTGOMERY Department: Room: [place] [address] Gender: Female Loan Specialist: VARGHESE : 1950 Requested By: MATT Lipscomb Order Number: [id number] Reading MD: Tino Sparks Measurements Intervals [place] Rate: 100 P: 67 [place]: 152 QRS: 45 QRSD: 69 T: 64 QT: 340 QTc: 440 Interpretive Statements SINUS TACHYCARDIA LOW QRS VOLTAGE IN PRECORDIAL LEADS POOR R WAVE PROGRESSION NSTTW ABNORMALITY(S) SIMILAR TO 01/18/20 Electronically Signed on 05-13-2020 7:06:41 EST by Tino Sparks
[2020-05-13] MEDS ORDERED: ASCORBIC ACID 500 MG TAB PO SCH (09:00)
[2020-05-13] MEDS ORDERED: ENOXAPARIN 40MG/0.4ML SYRINGE (J1650 PER 10MG) SC SCH (09:00)
[2020-05-13] MEDS ORDERED: busPIRone 10 MG TAB PO SCH (09:00)
[2020-05-13] MEDS ORDERED: MULTIVITAMINS/MINERALS THERAP 1 TAB PO SCH (09:00)
[2020-05-13] MEDS ORDERED: hydrOXYzine 10 MG TAB PO SCH (09:00)
[2020-05-13] MEDS ORDERED: QUEtiapine FUMARATE 100 MG TAB PO SCH ×2 (09:00→21:00)
[2020-05-13] MEDS ORDERED: ASPIRIN 81 MG ENTERIC TAB PO SCH (09:00)
[2020-05-13] MEDS ORDERED: DOCUSATE SODIUM 100MG CAPSULE PO SCH (09:00)
[2020-05-13 10:27] LABS: BASO % 0.5 % (0.0-1.0); EOS # 0.3 10^3/uL (0.0-0.5); EOS % 3.5 % (0.0-3.0); HEMATOCRIT 29.8 % (36.0-47.0); HEMOGLOBIN 9.4 g/dl (12.0-15.5); LYMPH # 0.9 10^3/uL (1.5-5.0); LYMPH % 11.7 % (24.0-44.0); MEAN CORPUSCULAR HEMOGLOBIN 29.6 pg (27.0-33.0); MEAN CORPUSCULAR HGB CONC 31.5 g/dl (32.0-36.5); MEAN CORPUSCULAR VOLUME 93.7 fl (80.0-96.0); MONO # 0.7 10^3/uL (0.0-0.8); MONO % 8.5 % (0.0-5.0); NEUTROPHILS % 75.2 % (36.0-66.0); PLATELET COUNT, AUTOMATED 320 10^3/uL (150-450); RED BLOOD COUNT 3.18 10^6/uL (4.00-5.40); WHITE BLOOD COUNT 7.9 10^3/uL (4.0-10.0)
[2020-05-13 10:49] LABS: INR 1.03; PROTHROMBIN TIME 13.7 SECONDS (12.5-14.3)
[2020-05-13 10:50] LABS: PARTIAL THROMBOPLASTIN TIME 37.7 SECONDS (24.2-38.5)
[2020-05-13 10:53] LABS: D-DIMER QUANT 2286.72 ng/ml (<500)
[2020-05-13 11:01] LABS: C REACTIVE PROTEIN QUANTITATIV 7.95 MG/DL (0.00-0.30); FERRITIN 200 NG/ML (8-252); LDH LACTATE DEHYDROGENASE 255 U/L (84-246); NT-PRO BNP 462 PG/ML (<125); TRIGLYCERIDES LEVEL 52 MG/DL (<150); TROPONIN I < 0.02 NG/ML (< 0.10)
[2020-05-13 11:19] LABS: HEPATITIS B SURFACE ANTIGEN NEGATIVE (NEGATIVE)
[2020-05-13] MEDS ORDERED: AUGM875T28 PO (13:23)
[2020-05-13] MEDS ORDERED: DEXA2TA PO (13:23)
[2020-05-13] MEDS ORDERED: ATORVASTATIN 10 MG TAB PO SCH (21:00)
[2020-05-13] MEDS ORDERED: CALCIUM/VITAMIN D 500 MG TAB PO SCH (21:00)
[2020-05-13] MEDS ORDERED: CitaloPRAM (CeleXA) 10 MG TABLET PO SCH (21:00)
--- NOTE | 2020-05-16 10:30 | DS.PDOC ---
Discharge Summary General Date of Admission May 12, 2020 at 20:28 Date of Discharge 05/13/2020 Attending Physician: ESTHER DUPONT MD Discharge Summary PROCEDURES PERFORMED DURING STAY: None ADMITTING DIAGNOSES: 1. . DISCHARGE DIAGNOSES: 1. . COMPLICATIONS/CHIEF COMPLAINT: Pneumonia Due To Covid 19,Metabolic Encephalopathy. HISTORY OF PRESENT ILLNESS: . HOSPITAL COURSE: . DISCHARGE MEDICATIONS: Please see below. ALLERGIES: Please see below. PHYSICAL EXAMINATION ON DISCHARGE: VITAL SIGNS: Please see below. GENERAL: HEENT: NECK: CARDIOVASCULAR EXAMINATION: RESPIRATORY EXAMINATION: ABDOMINAL EXAMINATION: EXTREMITIES: SKIN: NEUROLOGICAL EXAMINATION: PSYCHIATRIC EXAMINATION: LABORATORY DATA: Please see below. IMAGING: Head CT without contrast, 05/12/2020 IMPRESSION: No acute intracranial findings. Abdomen pelvis CT, 05/12/2020 Chest x-ray, 05/13/2020 PROGNOSIS: Good ACTIVITY: As tolerated DIET: Low cholesterol, fiber-rich diet DISPOSITION: Home, Self-Care (back to residence at [facility]) DISCHARGE INSTRUCTIONS & ITEMS TO FOLLOWUP ON ON OUTPATIENT: DISCHARGE CONDITION: Stable TIME SPENT ON DISCHARGE: 37 minutes Vital Signs/I&Os Vital Signs Date Time Temp Pulse Resp B/P (MAP) Pulse Ox O2 Delivery O2 Flow Rate FiO2 05/13/20 12:00 96.4 111 20 144/83 (103) 96 Room Air Microbiology Microbiology 05/13/20 Respiratory Virus Panel (PCR) (JL) - Final, Complete SARS-CoV-2 (COVID 19) Discharge Medications Scheduled Amoxicillin/Potassium Clav (Augmentin 875-125 Tablet) 1 Each Tablet, 875 MG PO BID Ascorbic Acid (Ascorbic Acid) 500 Mg Tablet, 500 MG PO DAILY, (Reported) Aspirin (Aspirin EC) 81 Mg Tablet.dr, 81 MG PO QHS, (Reported) Atorvastatin Calcium (Atorvastatin Calcium) 10 Mg Tablet, 10 MG PO QHS, (Reported) Buspirone HCl (Buspirone HCl) 15 Mg Tablet, 30 MG PO BID, (Reported) Calcium Carbonate/Vitamin D3 (Calcium 600-Vit D3 400 Tablet) 1 Each Tablet, 1 TAB PO QHS, (Reported) Cholecalciferol (Vitamin D3) (Vitamin D3) 125 Mcg Tablet, 125 MCG PO DAILY, (Reported) Citalopram Hydrobromide (Citalopram HBr) 10 Mg Tablet, 10 MG PO QHS, (Reported) Dexamethasone (Dexamethasone) 2 Mg Tablet, 2 MG PO DAILY Docusate Sodium (Colace) 100 Mg Capsule, 100 MG PO BID, (Reported) Estradiol (Estrace) 42.5 Gm Cream.appl, 0.5 GRAM PV QWEEK, (Reported) MONDAYS AND FRIDAYS AT Q Hydroxyzine HCl (Hydroxyzine HCl) 10 Mg Tablet, 10 MG PO BID, (Reported) MORNING, 1600 Levothyroxine Sodium (Synthroid) 75 Mcg Tablet, 75 MCG PO DAILY, (Reported) Multivitamins (Thera M Plus Tablet) 1 Each Tablet, 1 TAB PO DAILY, (Reported) Oxybutynin Chloride (Ditropan Xl) 10 Mg Tab.er.24, 10 MG PO DAILY, (Reported) Quetiapine Fumarate (Quetiapine Fumarate) 100 Mg Tablet, 100 MG PO DAILY, (Reported) Quetiapine Fumarate (Seroquel) 300 Mg Tablet, 300 MG PO QHS, (Reported) Allergies Coded Allergies: SEASONAL ALLERGIES (Verified Allergy, Unknown, 10/31/17) ziprasidone (Verified Allergy, Unknown, 02/06/19) ciprofloxacin (Verified Adverse Reaction, Severe, toxic encephalopathy, 09/27/19) JHONNY CUEVAS D.O. May 16, 2020 10:30
== END 2020-05-13 15:50 | disposition home or self-care (01) ==
LOC: M ED 20:27 → M ED INP 20:28 → M 4MAIN 05-13 05:54
PROVIDERS: ADMIT Internal Medicine; ATTEND Internal Medicine
DX: U07.1 COVID-19 (principal); J18.9 Pneumonia, unspecified organism; G93.41 Metabolic encephalopathy; E03.9 Hypothyroidism, unspecified; R10.9 Unspecified abdominal pain; D50.9 Iron deficiency anemia, unspecified; E78.49 Other hyperlipidemia; I10 Essential (primary) hypertension; E55.9 Vitamin D deficiency, unspecified; Z86.73 Personal history of transient ischemic attack (TIA), and cerebral infarction without residual deficits; F20.9 Schizophrenia, unspecified; F79 Unspecified intellectual disabilities; Z79.82 Long term (current) use of aspirin; Z79.899 Other long term (current) drug therapy; Z88.1 Allergy status to other antibiotic agents; Z88.8 Allergy status to other drugs, medicaments and biological substances
CPT/HCPCS: 36415; 36600; 70450; 71045; 74176; 80048; 80076; 81001; 82550; 82553; 82728; 82803; 83615; 83880; 84145; 84443; 84478; 84484; 85025; 85379; 85384; 85610; 85652; 85730; 86140; 86704; 87340; 87389; 87486; 87581; 87633; 87798; 93005; 93041; 94760; 96372; 99285; G0378; J1650

== ENCOUNTER → 2020-06-02 | Outpatient (CLI) | payer MEDICARE, MEDICAID ==
[~2020-06-02] MED LIST changes: +ASPI-161 PO; +ATOR1TAB19 PO; +AUGM875T28 PO; +CITA10TA5 PO; +D-50TAB PO; +DEXA2TA PO; +HYDR-643 PO; -QUET1TAB10 PO; +QUET300T2 PO; +SYNT75TA PO
--- NOTE | 2020-06-02 12:13 | REP ---
INDICATION: POST COVID. COMPARISON: Comparison chest x-ray May 13, 2020. TECHNIQUE: Two views.. FINDINGS: Lungs are symmetrically aerated. Previously noted patchy infiltrates have cleared. There are a few prominent interstitial markings in the left perihilar region. There are 2 old healed rib fractures noted on the right. No new infiltrate is seen. Pleural angles are sharp. Heart is not enlarged. Pulmonary vasculature is not increased. IMPRESSION: Lung munoz are improved compared to the 05/13/2020 prior study. No new infiltrate.. <Electronically signed by Elmer Simons > 06/02/20 [id number]
== END ==
LOC: M WUC 11:53
PROVIDERS: ATTEND Internal Medicine
DX: U07.1 COVID-19 (principal)

== ENCOUNTER → 2020-06-27 | Outpatient (CLI) | payer MEDICARE, MEDICAID ==
[2020-06-27 15:55] LABS: HEMATOCRIT 35.8 % (36.0-47.0); HEMOGLOBIN 11.1 g/dl (12.0-15.5); MEAN CORPUSCULAR HEMOGLOBIN 30.1 pg (27.0-33.0); PLATELET COUNT, AUTOMATED 229 10^3/uL (150-450); RED BLOOD COUNT 3.69 10^6/uL (4.00-5.40); WHITE BLOOD COUNT 5.7 10^3/uL (4.0-10.0)
[2020-06-27 15:58] LABS: BLOOD UREA NITROGEN 15 MG/DL (7-18); CALCIUM LEVEL 8.9 MG/DL (8.8-10.2); CARBON DIOXIDE LEVEL 28 MEQ/L (21-32); CHLORIDE LEVEL 106 MEQ/L (98-107); CREATININE FOR GFR 0.82 MG/DL (0.55-1.30); GLOMERULAR FILTRATION RATE > 60.0 (>45); GLUCOSE, FASTING 92 MG/DL (70-100); POTASSIUM SERUM 3.9 MEQ/L (3.5-5.1); SODIUM LEVEL 140 MEQ/L (136-145)
== END ==
LOC: M WUC 11:46
PROVIDERS: ATTEND Internal Medicine
DX: U07.1 COVID-19 (principal); Z79.899 Other long term (current) drug therapy

== ENCOUNTER → 2020-12-01 | Outpatient (REF) | payer MEDICARE, MEDICAID ==
[~2020-12-01] MED LIST changes: +NAPR-849 PO; -NAPR250T4 PO
== END ==
LOC: M LAB REF 16:28
PROVIDERS: ATTEND Physician Assistant
DX: N39.0 Urinary tract infection, site not specified (principal)

== ENCOUNTER → 2021-06-04 | Outpatient (REF) | payer MEDICARE, MEDICAID ==
[~2021-06-04] MED LIST changes: -CITA10TA5 PO; +CITA10TA7 PO
[2021-06-04 12:18] LABS: APPEARANCE, URINE CLEAR (CLEAR); BACTERIA, URINE AUTO NEGATIVE (NEGATIVE); BILIRUBIN, URINE AUTO NEGATIVE (NEGATIVE); BLOOD, URINE BLOOD NEGATIVE (NEGATIVE); COLOR, URINE YELLOW (YELLOW); GLUCOSE, URINE (UA) AUTO NEGATIVE (NEGATIVE); KETONE, URINE AUTO NEGATIVE (NEGATIVE); LEUKOCYTE ESTERASE, URINE AUTO NEGATIVE (NEGATIVE); NITRITE, URINE AUTO NEGATIVE (NEGATIVE); PROTEIN, URINE AUTO NEGATIVE (NEGATIVE); RBC, URINE AUTO 1 /HPF (0-3); SPECIFIC GRAVITY URINE AUTO 1.005 (1.002-1.035); SQUAMOUS EPITHELIAL CELL UR AU 0 /HPF (0-6); UROBILINOGEN, URINE AUTO 0.2 mg/dL (0.0-2.0); WBC, URINE AUTO 1 /HPF (0-3)
== END ==
LOC: M LAB REF 11:54
DX: J06.9 Acute upper respiratory infection, unspecified (principal); R53.83 Other fatigue; Z20.822 Contact with and (suspected) exposure to COVID-19

== ENCOUNTER 2021-07-16 09:48 | Emergency (ER) | payer MEDICARE, MEDICAID ==
[~2021-07-16] VITALS: Ht 147.3 cm; Wt 67.2 kg
[~2021-07-16 09:48] MED LIST changes: -D31000TA2 PO; +VITA100093 PO
[2021-07-16] MEDS ORDERED: ACETAMINOPHEN TAB 650MG DOSE (2X325MG) PO ONE (12:15)
[2021-07-16 12:30] VITALS: BP 134/60
== END 2021-07-16 12:41 | disposition home or self-care (01) ==
LOC: M ED 09:48
DX: R22.0 Localized swelling, mass and lump, head (principal); S09.90XA Unspecified injury of head, initial encounter; W18.39XA Other fall on same level, initial encounter; Y92.89 Other specified places as the place of occurrence of the external cause; I10 Essential (primary) hypertension; E78.5 Hyperlipidemia, unspecified; E03.9 Hypothyroidism, unspecified; F41.9 Anxiety disorder, unspecified; F20.9 Schizophrenia, unspecified; Z88.1 Allergy status to other antibiotic agents; Z88.8 Allergy status to other drugs, medicaments and biological substances; J30.2 Other seasonal allergic rhinitis; Z79.899 Other long term (current) drug therapy; Z79.82 Long term (current) use of aspirin; Z79.890 Hormone replacement therapy

== ENCOUNTER 2021-08-12 09:02 | Emergency (ER) | payer MEDICARE, MEDICAID ==
[~2021-08-12] VITALS: Ht 149.9 cm; Wt 65.8 kg
[2021-08-12] MEDS ORDERED: FLUORESCEIN OPHTH 1 MG STRIP OS ONE (10:55)
[2021-08-12 11:51] VITALS: BP 139/68
== END 2021-08-12 12:01 | disposition home or self-care (01) ==
LOC: M ED 09:02
DX: S00.81XA Abrasion of other part of head, initial encounter (principal); S00.83XA Contusion of other part of head, initial encounter; W01.0XXA Fall on same level from slipping, tripping and stumbling without subsequent striking against object, initial encounter; Y92.89 Other specified places as the place of occurrence of the external cause; I10 Essential (primary) hypertension; E78.00 Pure hypercholesterolemia, unspecified; E03.9 Hypothyroidism, unspecified; E55.9 Vitamin D deficiency, unspecified; F41.9 Anxiety disorder, unspecified; F20.9 Schizophrenia, unspecified; F70 Mild intellectual disabilities; M85.9 Disorder of bone density and structure, unspecified; Z79.899 Other long term (current) drug therapy; Z79.890 Hormone replacement therapy; Z79.82 Long term (current) use of aspirin; Z88.1 Allergy status to other antibiotic agents; Z88.8 Allergy status to other drugs, medicaments and biological substances; J30.2 Other seasonal allergic rhinitis

== ENCOUNTER → 2021-09-24 | Outpatient (CLI) | payer MEDICARE, MEDICAID | LOC: M WHC 06:54 | PROVIDERS: ATTEND Internal Medicine | DX: Z12.31 Encounter for screening mammogram for malignant neoplasm of breast (principal); Z78.0 Asymptomatic menopausal state ==

== ENCOUNTER → 2022-09-27 | Outpatient (CLI) | payer MEDICARE, MEDICAID ==
[~2022-09-27] MED LIST changes: +BENZ0.5T2 PO; -BENZ0.5T23 PO; +FLUT50SP17 NARES; -FLUTISP NARES
== END ==
LOC: M WHC 10:27
PROVIDERS: ATTEND Internal Medicine
DX: Z12.31 Encounter for screening mammogram for malignant neoplasm of breast (principal); Z13.820 Encounter for screening for osteoporosis; M81.0 Age-related osteoporosis without current pathological fracture; M85.851 Other specified disorders of bone density and structure, right thigh; M85.852 Other specified disorders of bone density and structure, left thigh

== ENCOUNTER → 2023-03-09 | Outpatient (CLI) | payer MEDICARE, MEDICAID | LOC: M RAD 16:26 | PROVIDERS: ATTEND Internal Medicine | DX: M54.9 Dorsalgia, unspecified (principal) ==

== ENCOUNTER → 2023-03-31 | Outpatient (CLI) | payer MEDICARE, MEDICAID | LOC: M WUC 09:41 | PROVIDERS: ATTEND Nurse Practitioner Family | DX: S52.501A Unspecified fracture of the lower end of right radius, initial encounter for closed fracture (principal); M25.531 Pain in right wrist; M79.641 Pain in right hand; Y93.9 Activity, unspecified; Y92.9 Unspecified place or not applicable ==

== ENCOUNTER 2023-08-21 02:55 | Emergency (ER) | payer MEDICARE, MEDICAID ==
[~2023-08-21] VITALS: Ht 149.9 cm; Wt 67.3 kg
[~2023-08-21 02:55] MED LIST changes: -ASPI-161 PO; +ASPI-615 PO; -FLUT50SP17 NARES; +FLUTISP NARES
[2023-08-21 05:11] LABS: BASO # 0.1 10^3/uL (0.0-0.2); BASO % 1.3 % (0.0-1.0); EOS # 0.2 10^3/uL (0.0-0.5); EOS % 3.8 % (0.0-3.0); HEMATOCRIT 35.8 % (36.0-47.0); HEMOGLOBIN 11.4 g/dl (12.0-15.5); LYMPH # 1.5 10^3/uL (1.5-5.0); LYMPH % 24.5 % (24.0-44.0); MEAN CORPUSCULAR HGB CONC 31.8 g/dl (32.0-36.5); MEAN CORPUSCULAR VOLUME 94.2 fl (80.0-96.0); MONO # 0.4 10^3/uL (0.0-0.8); MONO % 6.8 % (2.0-8.0); NEUTROPHILS # 3.8 10^3/uL (1.5-8.5); NEUTROPHILS % 63.4 % (36.0-66.0); PLATELET COUNT, AUTOMATED 252 10^3/uL (150-450); WHITE BLOOD COUNT 6.1 10^3/uL (4.0-10.0)
[2023-08-21 05:30] VITALS: BP 169/75; TEMP 97.6; O2SAT 95
[2023-08-21 05:34] LABS: BLOOD UREA NITROGEN 18 MG/DL (9-23); CALCIUM LEVEL 8.8 MG/DL (8.3-10.6); CARBON DIOXIDE LEVEL 26 MMOL/L (20-31); CHLORIDE LEVEL 107 MMOL/L (98-107); CREATININE FOR GFR 0.83 MG/DL (0.55-1.30); GLOMERULAR FILTRATION RATE > 60.0 (>39); GLUCOSE, FASTING 104 MG/DL (74-106); MAGNESIUM LEVEL 1.8 MG/DL (1.8-2.4); POTASSIUM SERUM 4.1 MMOL/L (3.5-5.1); SODIUM LEVEL 140 MMOL/L (136-145)
== END 2023-08-21 06:27 | disposition home or self-care (01) ==
LOC: M ED 02:55
DX: R11.2 Nausea with vomiting, unspecified (principal); E07.9 Disorder of thyroid, unspecified; E78.5 Hyperlipidemia, unspecified; F41.9 Anxiety disorder, unspecified; F32.A Depression, unspecified; F20.9 Schizophrenia, unspecified; E55.9 Vitamin D deficiency, unspecified; Z79.82 Long term (current) use of aspirin; Z79.890 Hormone replacement therapy; Z79.899 Other long term (current) drug therapy; Z88.1 Allergy status to other antibiotic agents; Z88.8 Allergy status to other drugs, medicaments and biological substances

== ENCOUNTER → 2024-01-04 | Outpatient (CLI) | payer MEDICARE, MEDICAID | LOC: M WHC 08:08 | PROVIDERS: ATTEND Internal Medicine | DX: Z12.31 Encounter for screening mammogram for malignant neoplasm of breast (principal); R92.323 Mammographic fibroglandular density, bilateral breasts ==

== ENCOUNTER → 2024-02-25 | Outpatient (CLI) | payer MEDICARE, MEDICAID ==
[2024-02-25 10:12] LABS: ALBUMIN 3.7 G/DL (3.2-5.2); ALKALINE PHOSPHATASE 73 U/L (46-116); ALT/SGPT 17 U/L (7.0-40); AST/SGOT 20 U/L (<34); BILIRUBIN,TOTAL 0.4 MG/DL (0.3-1.2); BLOOD UREA NITROGEN 20 MG/DL (9-23); CALCIUM LEVEL 9.3 MG/DL (8.3-10.6); CARBON DIOXIDE LEVEL 29 MMOL/L (20-31); CHLORIDE LEVEL 107 MMOL/L (98-107); CHOLESTEROL LEVEL 184 MG/DL (<200); CHOLESTEROL RISK RATIO 2.96 (<5); CREATININE FOR GFR 0.93 MG/DL (0.55-1.30); GLOMERULAR FILTRATION RATE > 60.0 (>39); GLUCOSE, FASTING 78 MG/DL (74-106); LDL CHOLESTEROL 103.8 MG/DL (<100); POTASSIUM SERUM 4.4 MMOL/L (3.5-5.1); SODIUM LEVEL 140 MMOL/L (136-145); TOTAL PROTEIN 6.7 G/DL (5.7-8.2); TRIGLYCERIDES LEVEL 91 MG/DL (<150)
[2024-02-25 10:14] LABS: THYROID STIMULATING HORMONE 1.214 uIU/ML (0.55-4.78)
== END ==
LOC: M LAB 08:31
PROVIDERS: ATTEND Internal Medicine
DX: E78.5 Hyperlipidemia, unspecified (principal)

== ENCOUNTER → 2025-05-06 | Outpatient (CLI) | payer MEDICARE, MEDICAID ==
[~2025-05-06] MED LIST changes: +ALEN70TA82 PO; +MULT-40 PO; +VENL75CA2 PO
[2025-05-06 07:48] LABS: BASO # 0.1 10^3/uL (0.0-0.2); BASO % 2.4 % (0.0-1.0); EOS # 0.4 10^3/uL (0.0-0.5); EOS % 7.5 % (0.0-3.0); LYMPH # 1.9 10^3/uL (1.5-5.0); LYMPH % 33.9 % (24.0-44.0); MONO # 0.5 10^3/uL (0.0-0.8); MONO % 8.2 % (2.0-8.0); NEUTROPHILS # 2.6 10^3/uL (1.5-8.5); NEUTROPHILS % 47.8 % (36.0-66.0); PLATELET COUNT, AUTOMATED 312 10^3/uL (150-450)
[2025-05-06 08:10] LABS: ALT/SGPT 17.0 U/L (7.0-40); AST/SGOT 31.0 U/L (<34); CALCIUM LEVEL 8.9 MG/DL (8.3-10.6); CARBON DIOXIDE LEVEL 29.0 MMOL/L (20-31); CHLORIDE LEVEL 105.0 MMOL/L (98-107); CHOLESTEROL LEVEL 152.0 MG/DL (<200); CHOLESTEROL RISK RATIO 2.69 (<5); CREATININE FOR GFR 0.89 MG/DL (0.55-1.30); GLOMERULAR FILTRATION RATE 68.4 (>39); LDL CHOLESTEROL 77.8 MG/DL (<100); NON-HDL-C 95.6 MG/DL; POTASSIUM SERUM 4.4 MMOL/L (3.5-5.1); SODIUM LEVEL 140.0 MMOL/L (136-145); TRIGLYCERIDES LEVEL 89.0 MG/DL (<150)
[2025-05-06 08:13] LABS: TOTAL 25(OH) VITAMIN D 67.3 NG/ML (20.0-100.0)
== END ==
LOC: M LAB 06:26
PROVIDERS: ATTEND Internal Medicine
DX: E78.5 Hyperlipidemia, unspecified (principal); E03.9 Hypothyroidism, unspecified; M81.0 Age-related osteoporosis without current pathological fracture